=== PATIENT | male | born 1960 | race Caucasian/White ===

== ENCOUNTER 2021-12-03 08:03 | Inpatient (IN) | payer OTHER, SELFPAY ==
[2021-12-03] VITALS (32 sets, daily range): BP systolic 120–164; BP diastolic 76–115; PULSE 61–128; RESP 12–18; TEMP 35.8–36.6; O2SAT 87–100; BMI 25.1
--- NOTE | 2021-12-03 08:27 | CRLHL7_ITS ---
For Patients: As a result of the Century Cures Act, medical imaging exams and procedure reports are released immediately into your electronic medical record. You may view this report before your referring provider. If you have questions, please contact your health care provider. Indication: Right upper quadrant pain Technique: Sonography of the abdomen was performed limited to the structures discussed below Comparison: None Findings: The liver is heterogeneous and hyperechoic with decreased sound through transmission. This pattern is usually due to hepatic steatosis. No focal mass or biliary ductal dilatation. The pancreas appears heterogeneous and hyperechoic probably due to fatty infiltration. The right kidney is unremarkable measuring 9.7 x 5.5 x 5.0 centimeters. No visible hydronephrosis, calculus or mass The aorta and cava as visualized appears normal. The gallbladder is abnormal. It is distended. There is sludge. No visible stones. Wall thickening is noted with the wall measuring 5 millimeters. Greater than 3 millimeters is considered abnormal. There is also trace pericholecystic fluid and intramural edema of the gallbladder wall. The common bile duct measures 5 millimeters which is normal Impression: Findings likely related to acute cholecystitis in the appropriate clinical setting. Dictated by Howard Hutchinson MD @ 12/03/2021 9:32:59 AM (Electronically Signed)
--- NOTE | 2021-12-03 08:30 | ED_ITS ---
HPI - Abdominal Pain General Chief Complaint: Abdominal Pain Stated Complaint: Sharp pain right side Time Seen by Provider: 12/03/21 08:20 History of Present Illness HPI narrative: This is a 61-year-old male patient with known history of Crohn's disease who presents emergency department with 2 days of right upper quadrant abdominal pain. He reports the pain is most severe with deep inspiration and is 'stabbing'. However, otherwise the pain is constant and 'aching'. Patient reports pain is not similar to his previous Crohn flares. Patient reports he has decreased p.o. intake secondary to abdominal pain, but he denies this has improved his discomfort. He denies fever, chills, or sweats. He reports in the last week he has felt backed up and reports that he has had multiple stools since that time. His last stool was 1 day prior to presentation. He denies blood, mucus, or loose stools. He denies nausea or vomiting. See nursing notes for additional details. Related Data Home Medications Medication Instructions Recorded Confirmed alendronate 70 mg tablet ea PO 11/10/21 11/10/21 omeprazole 20 mg capsule,delayed 20 mg PO BID cap 11/10/21 11/10/21 release omeprazole 40 mg capsule,delayed 40 mg PO QDAY cap 11/10/21 11/10/21 release adalimumab 40 mg/0.4 mL mg SUBCUT 12/03/21 subcutaneous pen kit (Humira(CF) Pen) cholestyramine-aspartame 4 gram ea 12/03/21 oral powder for susp in a packet (Cholestyramine Light) Allergies Allergy/AdvReac Type Severity Reaction Status Date / Time mercaptopurine Allergy Intermediate low wbc Verified 12/03/21 11:11 [From Purinethol] infliximab [From Remicade] Allergy Unknown Verified 12/03/21 11:11 amoxicillin Allergy Unknown Uncoded 12/03/21 11:11 Review of Systems Const Denies: fever, chills, fatigue or malaise Cardio Denies: chest pain or shortness of breath with exertion Resp Denies: shortness of breath or cough GI Denies: abdominal pain, nausea, vomiting, diarrhea or constipation Denies: painful urination, urinary frequency or urinary urgency Neuro Denies: headache, numbness in extremities or lack of coordination Endo Denies: fatigue PFSH [facility] Medical History Acid reflux Crohn disease Gout Surgical History History of bowel resection History of hernia surgery History of penile implant Family History Other Coronary artery disease IBS (irritable bowel syndrome) Lung cancer Prostate cancer Stomach problems Social History Smoking Status: Never smoker How often do you have a drink containing alcohol: monthly or less Alcohol type details: occasionally AUDIT-C Alcohol total score: 1 Non-prescribed substance use: denies use Exam Const: Vital Signs, click to edit/add: Vital Signs - 24 hr 12/03/21 08:08 12/03/21 08:30 12/03/21 09:30 Temperature 97.5 F L Pulse Rate [Left P ulse Oximeter] 77 72 61 Respiratory Rate 18 18 Blood Pressure [Ri ght Upper Arm] 147/79 H 139/85 145/89 H Pulse Oximetry 100 99 100 12/03/21 10:00 12/03/21 10:30 12/03/21 11:30 Temperature Pulse Rate [Left P ulse Oximeter] 69 68 68 Respiratory Rate 18 18 Blood Pressure [Ri ght Upper Arm] 148/89 H 141/83 H 141/81 H Pulse Oximetry 99 99 100 12/03/21 12:00 12/03/21 12:30 Temperature Pulse Rate [Left P ulse Oximeter] 76 68 Respiratory Rate Blood Pressure [Ri ght Upper Arm] 150/97 H 147/92 H Pulse Oximetry 100 100 Documenting provider has reviewed patient's vital signs: yes Common normals: no apparent distress, oriented x3, alert and well nourished General appearance: cooperative, comfortable, well kempt and well developed Orientation/consciousness: Yes oriented to person, Yes oriented to place and Yes oriented to time HENMT: Common normals: normocephalic and hearing grossly normal bilaterally Head and scalp: normocephalic Eye: Common normals: EOMs intact bilaterally General eye: normal appearance of both eyes Neck & C-Spine: Common normals: full ROM and supple Chest: Common normals: inspection of chest normal Resp: Common normals: normal respiratory effort, no retractions, no use of accessory muscles and clear to auscultation bilaterally Auscultation: clear to auscultation bilaterally Cardio: Common normals: regular rate, regular rhythm, S1 normal heart sound, S2 normal heart sound, no gallops and no murmurs Rate: regular rate Rhythm: regular rhythm Heart sounds: S1 normal and S2 normal GI: Common normals: Normal to inspection, nondistended, normoactive bowel sounds present (protuberant) and soft to palpation Palpation: soft and tender (RUQ with Tran's positive) Details: Tran's sign : Common normals: no CVA tenderness Bladder/kidney exam: no CVA tenderness Back & Pelvis: Common normals: no CVA tenderness Extremity: Common normals: normal to inspection and no clubbing, cyanosis or edema Neuro: Common normals: oriented x3 Sensorium/orientation: alert, oriented to person, oriented to place and oriented to time Psych: Common normals: mental status grossly normal, thought process normal, cooperative, affect normal, speech normal and activity/motor behavior normal Appearance: well kempt Speech: normal speech Thought process: normal thought process Skin: Common normals: no rashes or lesions noted General skin exam: no rashes or lesions noted Course Course Hospital Course: 61yo male patient who presented with complaint of RUQ abdominal pain and found to have cholecystitis. The patient was presented to [facility] for admission and further treatment/evaluation. His vitals have remained stable. He is currently comfortable. Reevaluation(s) Reevaluation #1: Julio César is still resting comfortably. Discussed results from US and initial lab reports. Will plan outpatient referral for patient for gallbladder disease. Time: 09:15 Reevaluation #2: Julio César has been notified of consult with surgeon, once available. Elevated DDimer (ordered for increased pain with inspiration), CTA ordered. Time: 09:38 Vital Signs Vital signs: Initial Vital Signs Temperature 97.5 F L 12/03/21 08:08 Temperature Source Temporal Artery Scan 12/03/21 08:08 Pulse Rate 77 12/03/21 08:08 Respiratory Rate 18 12/03/21 08:08 Blood Pressure 147/79 H 12/03/21 08:08 Blood Pressure Mean 101 12/03/21 08:08 Blood Pressure Position Supine 12/03/21 08:08 Pulse Oximetry 100 07/21/22 08:08 Oxygen Delivery Method 12/03/21 08:08 Vital Signs Temperature 97.5 F L 12/03/21 08:08 Pulse Rate 77 12/03/21 08:08 Respiratory Rate 18 12/03/21 08:08 Blood Pressure 147/79 H 12/03/21 08:08 Pulse Oximetry 100 12/03/21 08:08 Temperature 97.5 F L 12/03/21 08:08 Pulse Rate 68 12/03/21 12:30 Respiratory Rate 18 12/03/21 11:30 Blood Pressure 147/92 H 12/03/21 12:30 Pulse Oximetry 100 12/03/21 12:30 MDM - Abdominal Pain Differential Diagnosis Differential diagnosis: Likely abdominal pain, constipation, diverticulitis, gastroenteritis and small bowel obstruction Medical Records Attestation: I reviewed the patient's medical records. Lab Data Attestation: I reviewed the patient's lab results. Lab results narrative: Last LFTs 08/04: bilirubin (1.6) / AST/ALT (44/69) Labs: Lab Results 12/03/21 12/03/21 12/03/21 Range/Units 08:27 08:44 08:44 WBC 6.55 (4.50-11.00) K/uL RBC 4.04 L (4.30-5.90) m/uL Hgb 12.2 L (13.5-17.5) gm/dL Hct 36.4 L (37.0-53.0) % MCV 90 (80-100) fL MCH 30 (26-34) pg MCHC 34 (32-36) gm/dL RDW Coeff of Deep 13.0 (11.5-15.5) % Plt Count 253 (140-440) K/uL Neut % (Auto) 58.2 (42.0-72.0) % Lymph % (Auto) 25.0 (20-44) % Richardson % (Auto) 14.7 H (0.0-11.0) % Eos % (Auto) 1.4 (0.0-7.0) % Baso % (Auto) 0.5 (0.0-3.0) % Neut # (Auto) 3.82 (1.7-7.0) K/uL Lymph # (Auto) 1.64 (0.90-2.90) K/uL Richardson # (Auto) 1.00 H (0.00-0.90) K/UL Eos # (Auto) 0.09 (0.00-0.50) K/uL Baso # (Auto) 0.03 (0.00-0.30) K/uL Abs Immat Gran (auto) 0.01 (0.00-0.30) K/uL D-Dimer Quant (PE/DVT) (0.00-0.50) ug/ml Sodium 139 (135-149) mmol/L Potassium 3.7 (3.6-5.1) mmol/L Chloride 104 (96-114) mmol/L Carbon Dioxide 28 (20-32) mmol/L BUN 11 (7-30) mg/dL Creatinine 1.0 (0.5-1.5) mg/dL Estimated Creat Clear 77.57 Estimated GFR 86 ml/min Glucose 115 (60-115) mg/dL Plasma Lactic Acid Jabari Lactate (0.5-1.9) mmol/L Calcium 8.3 L (8.4-10.6) mg/dL Total Bilirubin 4.8 H (0.1-1.5) mg/dL Direct Bilirubin 1.9 H (0.0-0.5) mg/dL AST 72 H (12-35) U/L ALT 92 H (4-50) U/L Alkaline Phosphatase 125 (40-150) U/L Total Protein 7.8 (6.0-8.3) g/dL Albumin 3.8 (3.3-5.0) g/dL Urine Color Paula A (Yellow) Urine Appearance Clear (Clear) Urine pH 6.0 (5.0-8.5) Ur Specific [place] 1.025 (1.000-1.030) Urine Protein 1+ A (Negative) Urine Glucose (UA) Negative (Negative) Urine Ketones Negative (Negative) Urine Blood Negative (Negative) Urine Nitrite Negative (Negative) Urine Bilirubin 1+ A (Negative) Urine Urobilinogen 0.2 (0.2-1.0) Ur Leukocyte Esterase Negative (Negative) Urine RBC 0-2 (0-2) Urine WBC 0-2 (0-5) Ur Squamous Epith Cells None (None-Few) Urine Bacteria None (None) SARS-CoV-2 (PCR) (Negative) 12/03/21 12/03/21 12/03/21 Range/Units 08:44 08:44 08:44 WBC (4.50-11.00) K/uL RBC (4.30-5.90) m/uL Hgb (13.5-17.5) gm/dL Hct (37.0-53.0) % MCV (80-100) fL MCH (26-34) pg MCHC (32-36) gm/dL RDW Coeff of Deep (11.5-15.5) % Plt Count (140-440) K/uL Neut % (Auto) (42.0-72.0) % Lymph % (Auto) (20-44) % Richardson % (Auto) (0.0-11.0) % Eos % (Auto) (0.0-7.0) % Baso % (Auto) (0.0-3.0) % Neut # (Auto) (1.7-7.0) K/uL Lymph # (Auto) (0.90-2.90) K/uL Richardson # (Auto) (0.00-0.90) K/UL Eos # (Auto) (0.00-0.50) K/uL Baso # (Auto) (0.00-0.30) K/uL Abs Immat Gran (auto) (0.00-0.30) K/uL D-Dimer Quant (PE/DVT) 2.45 H (0.00-0.50) ug/ml Sodium (135-149) mmol/L Potassium (3.6-5.1) mmol/L Chloride (96-114) mmol/L Carbon Dioxide (20-32) mmol/L BUN (7-30) mg/dL Creatinine (0.5-1.5) mg/dL Estimated Creat Clear Estimated GFR ml/min Glucose (60-115) mg/dL Plasma Lactic Acid Jabari Cancelled Lactate 0.6 (0.5-1.9) mmol/L Calcium (8.4-10.6) mg/dL Total Bilirubin (0.1-1.5) mg/dL Direct Bilirubin (0.0-0.5) mg/dL AST (12-35) U/L ALT (4-50) U/L Alkaline Phosphatase (40-150) U/L Total Protein (6.0-8.3) g/dL Albumin (3.3-5.0) g/dL Urine Color (Yellow) Urine Appearance (Clear) Urine pH (5.0-8.5) Ur Specific [place] (1.000-1.030) Urine Protein (Negative) Urine Glucose (UA) (Negative) Urine Ketones (Negative) Urine Blood (Negative) Urine Nitrite (Negative) Urine Bilirubin (Negative) Urine Urobilinogen (0.2-1.0) Ur Leukocyte Esterase (Negative) Urine RBC (0-2) Urine WBC (0-5) Ur Squamous Epith Cells (None-Few) Urine Bacteria (None) SARS-CoV-2 (PCR) (Negative) 12/03/21 Range/Units 10:20 WBC (4.50-11.00) K/uL RBC (4.30-5.90) m/uL Hgb (13.5-17.5) gm/dL Hct (37.0-53.0) % MCV (80-100) fL MCH (26-34) pg MCHC (32-36) gm/dL RDW Coeff of Deep (11.5-15.5) % Plt Count (140-440) K/uL Neut % (Auto) (42.0-72.0) % Lymph % (Auto) (20-44) % Richardson % (Auto) (0.0-11.0) % Eos % (Auto) (0.0-7.0) % Baso % (Auto) (0.0-3.0) % Neut # (Auto) (1.7-7.0) K/uL Lymph # (Auto) (0.90-2.90) K/uL Richardson # (Auto) (0.00-0.90) K/UL Eos # (Auto) (0.00-0.50) K/uL Baso # (Auto) (0.00-0.30) K/uL Abs Immat Gran (auto) (0.00-0.30) K/uL D-Dimer Quant (PE/DVT) (0.00-0.50) ug/ml Sodium (135-149) mmol/L Potassium (3.6-5.1) mmol/L Chloride (96-114) mmol/L Carbon Dioxide (20-32) mmol/L BUN (7-30) mg/dL Creatinine (0.5-1.5) mg/dL Estimated Creat Clear Estimated GFR ml/min Glucose (60-115) mg/dL Plasma Lactic Acid Jabari Lactate (0.5-1.9) mmol/L Calcium (8.4-10.6) mg/dL Total Bilirubin (0.1-1.5) mg/dL Direct Bilirubin (0.0-0.5) mg/dL AST (12-35) U/L ALT (4-50) U/L Alkaline Phosphatase (40-150) U/L Total Protein (6.0-8.3) g/dL Albumin (3.3-5.0) g/dL Urine Color (Yellow) Urine Appearance (Clear) Urine pH (5.0-8.5) Ur Specific [place] (1.000-1.030) Urine Protein (Negative) Urine Glucose (UA) (Negative) Urine Ketones (Negative) Urine Blood (Negative) Urine Nitrite (Negative) Urine Bilirubin (Negative) Urine Urobilinogen (0.2-1.0) Ur Leukocyte Esterase (Negative) Urine RBC (0-2) Urine WBC (0-5) Ur Squamous Epith Cells (None-Few) Urine Bacteria (None) SARS-CoV-2 (PCR) Negative SARS-CoV-2 (Negative) Imaging Data GB US: Attestation: I have reviewed the pertinent imaging results. Radiologist's impression: The gallbladder is abnormal. It is distended. There is sludge. No visible stones. Wall thickening is noted with the wall measuring 5 millimeters. Greater than 3 millimeters is considered abnormal. There is also trace pericholecystic fluid and intramural edema of the gallbladder wall. The common bile duct measures 5 millimeters which is normal Impression: Findings likely related to acute cholecystitis in the appropriate clinical setting. CT scan - chest: Attestation: I have reviewed the pertinent imaging results. Radiologist's impression: IMPRESSION: 1. Negative for acute pulmonary embolism. No other acute findings in the chest. 2. Markedly distended gallbladder with pericholecystic fat stranding suggesting acute cholecystitis. Discharge Plan Discharge Clinical Impression: Transaminitis, Acute cholecystitis Patient Disposition: Admitted As Inpatient Condition: Stable Activity Level: No Restrictions and Activity as Tolerated
[2021-12-03 08:57] LABS: Lactate* 0.6 mmol/L (0.5-1.9)
[2021-12-03 09:01] LABS: Basophils Absolute Auto 0.03 K/uL (0.00-0.30); Basophils Percent Auto 0.5 % (0.0-3.0); Eosinophils Absolute Auto 0.09 K/uL (0.00-0.50); Eosinophils Percent Auto 1.4 % (0.0-7.0); Hematocrit 36.4 % (37.0-53.0); Hemoglobin* 12.2 gm/dL (13.5-17.5); Immature Granulocytes Abs Auto 0.01 K/uL (0.00-0.30); Lymphocytes Absolute Auto 1.64 K/uL (0.90-2.90); Mean Corpuscular HGB Conc 34 gm/dL (32-36); Mean Corpuscular Hemoglobin 30 pg (26-34); Mean Corpuscular Volume 90 fL (80-100); Monocytes Percent Auto 14.7 % (0.0-11.0); Neutrophils Absolute Auto 3.82 K/uL (1.7-7.0); Neutrophils Percent Auto 58.2 % (42.0-72.0); Platelet Count* 253 K/uL (140-440); Red Blood Count 4.04 m/uL (4.30-5.90); White Blood Count* 6.55 K/uL (4.50-11.00)
[2021-12-03 09:10] LABS: Slide Review Reflex No
[2021-12-03 09:17] LABS: Albumin* 3.8 g/dL (3.3-5.0)
[2021-12-03 09:18] LABS: Chloride* 104 mmol/L (96-114); Potassium* 3.7 mmol/L (3.6-5.1); Sodium* 139 mmol/L (135-149)
[2021-12-03 09:20] LABS: Aspartate Amino Transferase* 72 U/L (12-35); Carbon Dioxide* 28 mmol/L (20-32); Est. Creatinine Clearance* 77.57; Estimated Glomerular Filt Rate 86 ml/min; Total Protein* 7.8 g/dL (6.0-8.3)
[2021-12-03 09:21] LABS: Alanine Aminotransferase* 92 U/L (4-50); Alkaline Phosphatase* 125 U/L (40-150); Blood Urea Nitrogen* 11 mg/dL (7-30); Calcium* 8.3 mg/dL (8.4-10.6); Glucose* 115 mg/dL (60-115)
[2021-12-03 09:34] LABS: Appearance Urine Clear (Clear); Bilirubin Urine 1+ (Negative); Blood Urine Negative (Negative); Color Urine Amber (Yellow); Glucose Urine Negative (Negative); Ketones Urine Negative (Negative); Leukocyte Esterase Urine Negative (Negative); Nitrite Urine Negative (Negative); Protein Urine 1+ (Negative); Specific Gravity Urine 1.025 (1.000-1.030); Urobilinogen Urine 0.2 (0.2-1.0)
[2021-12-03 09:36] LABS: D Dimer Quantitative* 2.45 ug/ml (0.00-0.50)
[2021-12-03 09:45] LABS: RBC Urine 0-2 (0-2); WBC Urine 0-2 (0-5)
--- NOTE | 2021-12-03 09:57 | CRLHL7_ITS ---
For Patients: As a result of the Century Cures Act, medical imaging exams and procedure reports are released immediately into your electronic medical record. You may view this report before your referring provider. If you have questions, please contact your health care provider. INDICATION: Elevated D-dimer, right upper quadrant pain with inspiration. COMPARISON: Abdominal ultrasound 12/03/2021. CT chest 02/23/2019. TECHNIQUE: CT of the chest with 95 cc of Isovue 370 IV contrast. Coronal and sagittal reconstructions. 3D post processing was performed. FINDINGS: Heart size upper limits of normal. Normal caliber thoracic aorta and central pulmonary arteries. Mild coronary artery calcifications. Negative for acute pulmonary embolism. No pericardial effusion. No thoracic lymphadenopathy. The imaged thyroid gland is normal in appearance. No focal consolidation, pleural effusion, or pneumothorax. The previously seen right middle lobe consolidation has resolved. Mild bibasilar atelectasis. No pulmonary nodules identified. No central endobronchial lesion or bronchial wall thickening. Mild elevation of the right hemidiaphragm. Small hiatal hernia. The gallbladder is markedly distended with pericholecystic fat stranding suggesting acute cholecystitis. No calcified gallstones are seen. No biliary dilation. The visualized upper abdomen is otherwise unremarkable. The bones are within normal limits. IMPRESSION: 1. Negative for acute pulmonary embolism. No other acute findings in the chest. 2. Markedly distended gallbladder with pericholecystic fat stranding suggesting acute cholecystitis. Please note that all CT scans at this facility use dose modulation, iterative reconstruction, and/or weight-based dosing when appropriate to reduce radiation dose to as low as reasonably achievable. Dictated by Ena Gonsalves MD @ 12/03/2021 12:41:53 PM (Electronically Signed)
--- NOTE | 2021-12-03 10:24 | ED.NURSE ---
[employer] swab for covid
--- NOTE | 2021-12-03 11:10 | W.PC.EDHO ---
Primary Language: Preferred Language: Orientation Status: [x] Alert & Oriented [] Slight Confusion [] Known Dx Dementia Transfers By: [x] Assist of 1 [] Assist of 2 [] Lift Description of Symptoms ED Triage Present Problem c/o R sided abd pain under rib cage. denies other Description symptoms. states a couple days ago had blockage in colon there, but had increased stools for that. hx crohn's, states this feels different. hx 2 surgeries for crohn's. took ibuprofen and gas x early this am with little relief ED Triage Date of Onset of 12/02/21 Symptoms Pain Pain Radiation Location [Right R abd Abdomen] Pain Intensity [Right Abdomen] 5 Pain Intensity [Right Abdomen] 5 Pain Intensity 5 Pain Intensity 5 Pain Intensity 5 Pain Scale Used [Right Abdomen Numeric (1 - 10) ] Pain Scale Used Numeric (1 - 10) Pain Scale Used Numeric (1 - 10) Oxygen Administration Pulse Oximetry 99 Pulse Oximetry 100 Pulse Oximetry 99 Pulse Oximetry 100 Oxygen Delivery Method Room Air Oxygen Delivery Method Room Air Oxygen Delivery Method Room Air Oxygen Delivery Method Room Air
[2021-12-03 11:17] LABS: SARS PCR* Negative SARS-CoV-2 (Negative)
[2021-12-03] MEDS: PIPERACILLIN/TAZOBACTAM 3.375 GM in 0.9 % SODIUM CHLORIDE Mini-bag 100 ML IVPB (11:26)
[2021-12-03 11:48] LABS: Bilirubin Direct* 1.9 mg/dL (0.0-0.5)
[2021-12-03 11:51] LABS: Bilirubin Total* 4.8 mg/dL (0.1-1.5)
--- NOTE | 2021-12-03 12:43 | P.GSCN_ITS ---
History of Present Illness Consult details Consult date: 12/03/21 Reason for consult: abdominal pain Narrative: Patient is a 61-year-old male, with a history of Crohn's disease, who presented to the emergency department with a 2 day history worsening right upper quadrant abdominal pain. The pain came on suddenly yesterday and was positioned right underneath his ribs. He tried to manage the pain at home with Tylenol to and rest, but it just continued to worsen and he now has pain with every breath. He has never had pain like this before and states that when he has pain from his Crohn's disease it is usually more diffuse. He does have multiple bowel movem ents a day, which is usual for him. He denies any fevers or chills at home. His abdominal surgical history is positive for 2 small bowel resections, both open. Review of Systems Status of ROS: Reports: 6 or more systems reviewed and unremarkable except as noted in History and below PFSH PFSH Medical History Acid reflux Crohn disease Gout Surgical History History of bowel resection History of hernia surgery History of penile implant Family History Other Coronary artery disease IBS (irritable bowel syndrome) Lung cancer Prostate cancer Stomach problems Social History Smoking Status: Never smoker How often do you have a drink containing alcohol: monthly or less Alcohol type details: occasionally AUDIT-C Alcohol total score: 1 Non-prescribed substance use: denies use Meds Home Medications and Allergies Home Medications Medication Instructions Recorded Confirmed Type alendronate 70 mg tablet ea PO 11/10/21 11/10/21 History omeprazole 20 mg capsule,delayed 20 mg PO BID cap 11/10/21 11/10/21 History release omeprazole 40 mg capsule,delayed 40 mg PO QDAY cap 11/10/21 11/10/21 History release adalimumab 40 mg/0.4 mL mg SUBCUT 12/03/21 History subcutaneous pen kit (Humira(CF) Pen) cholestyramine-aspartame 4 gram ea 12/03/21 History oral powder for susp in a packet (Cholestyramine Light) Allergies Allergy/AdvReac Type Severity Reaction Status Date / Time mercaptopurine Allergy Intermediate low wbc Verified 12/03/21 11:11 [From Purinethol] infliximab [From Remicade] Allergy Unknown Verified 12/03/21 11:11 amoxicillin Allergy Unknown Uncoded 12/03/21 11:11 Exam Narrative: Exam Narrative: General: Alert and oriented, no acute distress. Lying comfortably in bed. Respiratory: Equal breath rise bilaterally, maintained on room air CV: Regular rhythm and rate, well perfused Abdomen: Mild distention, soft. Tender to palpation right upper quadrant with positive Tran sign. Lower midline incision well healed. Const: Vital Signs, click to edit/add: Vital Signs - 24 hr 12/03/21 08:08 12/03/21 08:30 12/03/21 09:30 Temperature 97.5 F L Pulse Rate [Left P ulse Oximeter] 77 72 61 Respiratory Rate 18 18 Blood Pressure [Ri ght Upper Arm] 147/79 H 139/85 145/89 H Pulse Oximetry 100 99 100 12/03/21 10:00 12/03/21 10:30 Temperature Pulse Rate [Left P ulse Oximeter] 69 68 Respiratory Rate 18 Blood Pressure [Ri ght Upper Arm] 148/89 H 141/83 H Pulse Oximetry 99 99 Documenting provider has reviewed patient's vital signs: yes Results Labs Labs: Abnormal lab results 12/03/21 12/03/21 12/03/21 Range/Units 08:27 08:44 08:44 RBC 4.04 L (4.30-5.90) m/uL Hgb 12.2 L (13.5-17.5) gm/dL Hct 36.4 L (37.0-53.0) % [place] % (Auto) 14.7 H (0.0-11.0) % [place] # (Auto) 1.00 H (0.00-0.90) K/UL D-Dimer Quant (PE/DVT) (0.00-0.50) ug/ml Calcium 8.3 L (8.4-10.6) mg/dL Total Bilirubin 4.8 H (0.1-1.5) mg/dL Direct Bilirubin 1.9 H (0.0-0.5) mg/dL AST 72 H (12-35) U/L ALT 92 H (4-50) U/L Urine Color Paula A (Yellow) Urine Protein 1+ A (Negative) Urine Bilirubin 1+ A (Negative) 12/03/21 Range/Units 08:44 RBC (4.30-5.90) m/uL Hgb (13.5-17.5) gm/dL Hct (37.0-53.0) % [place] % (Auto) (0.0-11.0) % [place] # (Auto) (0.00-0.90) K/UL D-Dimer Quant (PE/DVT) 2.45 H (0.00-0.50) ug/ml Calcium (8.4-10.6) mg/dL Total Bilirubin (0.1-1.5) mg/dL Direct Bilirubin (0.0-0.5) mg/dL AST (12-35) U/L ALT (4-50) U/L Urine Color (Yellow) Urine Protein (Negative) Urine Bilirubin (Negative) Diabetes panel 12/03/21 Range/Units 08:44 Sodium 139 (135-149) mmol/L Potassium 3.7 (3.6-5.1) mmol/L Chloride 104 (96-114) mmol/L Carbon Dioxide 28 (20-32) mmol/L BUN 11 (7-30) mg/dL Creatinine 1.0 (0.5-1.5) mg/dL Glucose 115 (60-115) mg/dL Calcium 8.3 L (8.4-10.6) mg/dL AST 72 H (12-35) U/L ALT 92 H (4-50) U/L Alkaline Phosphatase 125 (40-150) U/L Total Protein 7.8 (6.0-8.3) g/dL Albumin 3.8 (3.3-5.0) g/dL Calcium panel 12/03/21 Range/Units 08:44 Calcium 8.3 L (8.4-10.6) mg/dL Albumin 3.8 (3.3-5.0) g/dL Pituitary panel 12/03/21 Range/Units 08:44 Sodium 139 (135-149) mmol/L Potassium 3.7 (3.6-5.1) mmol/L Chloride 104 (96-114) mmol/L Carbon Dioxide 28 (20-32) mmol/L BUN 11 (7-30) mg/dL Creatinine 1.0 (0.5-1.5) mg/dL Glucose 115 (60-115) mg/dL Calcium 8.3 L (8.4-10.6) mg/dL Adrenal panel 12/03/21 Range/Units 08:44 Sodium 139 (135-149) mmol/L Potassium 3.7 (3.6-5.1) mmol/L Chloride 104 (96-114) mmol/L Carbon Dioxide 28 (20-32) mmol/L BUN 11 (7-30) mg/dL Creatinine 1.0 (0.5-1.5) mg/dL Glucose 115 (60-115) mg/dL Calcium 8.3 L (8.4-10.6) mg/dL Total Bilirubin 4.8 H (0.1-1.5) mg/dL AST 72 H (12-35) U/L ALT 92 H (4-50) U/L Alkaline Phosphatase 125 (40-150) U/L Total Protein 7.8 (6.0-8.3) g/dL Albumin 3.8 (3.3-5.0) g/dL All other labs normal. Imaging CT scan - chest: report reviewed and image reviewed Abdominal ultrasound report/results: report reviewed and image reviewed Assessment and Plan Assessment and plan (1) Acute cholecystitis: Status: Acute Plan Patient presented to the emergency department with findings consistent for acute cholecystitis. Vital signs stable. Labs are significant for elevated bilirubin (4.9 with elevation and direct), as well as elevated ALT/AST. Raising the concern for possible choledocholithiasis. I had a detailed conversation with the patient regarding the diagnosis of acute cholecystitis and choledocholithiasis We discussed the treatment options including observation with diet modification and laparoscopic cholecystectomy. We discussed the risks of surgery (including but not limited to) the risks of bleeding, infection, injury to other structures in the abdomen including bile duct injury, bile leak and conversion to an open operation. We discussed the possibility that the patient's pain not improve with surgery. We discussed the possibility of permanent post-operative diarrhea that may require medical management. Additionally, the conceivably of complications requiring additional surgery or further hospitalization were also discussed including the risks of [place], respiratory failure, stroke and blood clots. The patient voiced an understanding of our conversation, had the opportunity to ask questions, agreed to accept the risks of surgery and asked that we proceed with surgery. -OR for laparoscopic cholecystectomy with intraoperative cholangiogram
--- NOTE | 2021-12-03 12:49 | ED.NURSE ---
pt to Surgery
--- NOTE | 2021-12-03 12:53 | CRLHL7_ITS ---
For Patients: As a result of the Century Cures Act, medical imaging exams and procedure reports are released immediately into your electronic medical record. You may view this report before your referring provider. If you have questions, please contact your health care provider. INDICATION : Laparoscopic cholecystectomy. TECHNIQUE : Intraoperative cholangiogram. Contrast injected via gallbladder neck and cystic duct. FINDINGS : Fluoroscopy time was 16.7 seconds. Two images were obtained. IMPRESSION : Normal caliber intra and extrahepatic ducts. No filling defects. Contrast seen within the duodenum. Normal intraoperative cholangiogram. Dictated by Sixto Lee MD @ 12/03/2021 3:18:10 PM (Electronically Signed)
[2021-12-03] MEDS: 0.9 % SODIUM CHL 20 ml vial 40 ML INJECTION (14:24)
[2021-12-03] MEDS: IOPAMIDOL 50 ML VIAL INJECTION (14:24)
--- NOTE | 2021-12-03 14:25 | SUR.OPER ---
7 CC ISOVUE CONTRAST MEDIA USED DURING CHOLANGIOGRAM
[2021-12-03] MEDS: BUPIVACAINE 0.5% 30 ML INJECTION (15:45)
--- NOTE | 2021-12-03 15:55 | P.GSOP_ITS ---
Operative Note Date of procedure: 12/03/21 Type of Procedure: Laparoscopic cholecystectomy with intraoperative cholangiograms Procedure Description: After discussing the risks and benefits of the procedure, the patient signed informed consent.? The operative site was marked and the patient was brought to the operating room and placed on the operating table in supine position.? Care was taken to pad the patient's pressure points.?? The patient was then intubated by anesthesia.?? The operative site was then prepped and draped in the usual sterile fashion.? A time-out was then performed. Entrance to the abdomen was gained via a 5 mm Visiport in the left upper q uadrant. The abdomen was insufflated and briefly surveyed for signs of injury. There was none. 11 mm umbilical port was placed as well as 2 working ports along the right costal margin. Patient was then placed in reverse Trendelenburg position with the right side up. The gallbladder fundus was grasped and retracted cephalad. The omentum was adhered to the gallbladder, which was significantly distended. The omentum was gently peeled down which revealed a hemorrhagic gallbladder wall. The laparoscopic needle was introduced into the abdomen and greater than 200 mL dark bilious fluid was removed from the gallbladder and referred to be grasped. The infundibulum was grasped and retracted cephalad A combination of hook cautery and blunt dissection was used to carefully dissect out the cystic duct and artery until they could clearly be seen entering the gallbladder without any intervening structures. Dissection was difficult secondary to edema and associated inflammation. The critical view was obtained and the artery divided with 2 clips placed proximally 1 clip distally. A distal clip was applied on the cystic duct and a small incision was made on the duct in order to perform the intraoperative cholangiogram. The laparoscopic cholangiogram catheter was introduced into the abdomen and cystic duct. This was clamped in placed and saline flowed easily through the biliary system. C-arm fluoroscopy was then brought into the field and dye injected. Evidence of filling of the cystic duct into the common bile duct and duodenum with no blockage identified. The right and left hepatic ducts were also identified. With no evidence of choledocholithiasis the C-arm was taken off of the field and the operation continued. Two clips were placed proximally on the cystic duct, which was transected with scissors. The gallbladder was then taken off of the liver bed. This portion of the procedure was very difficult secondary to an intrahepatic inflamed gallbladder. The gallbladder wall was also hemorrhagic and necrotic at parts. During the removal process a small laceration of the liver was made within the gallbladder fossa. This was cauterized to help control bleeding. Once the gallbladder was completely taken off of the liver bed it was removed from the abdomen using an Endo-Catch bag. The gallbladder bed was surveyed for hemostasis, which appeared excellent. Cas sta was placed within the gallbladder fossa. The decision was made to place a ANTONINA drain within the gallbladder fossa given the difficulty of dissection and intraoperative blood loss from the liver laceration. All ports removed under direct visualization The umbilical port fascia was closed with 0 Vicryl. The skin was closed with absorbable subcuticular suture. Instrument sponge and needle counts were correct at the end of the case. The patient was then woken and transferred to the PACU in stable condition. ? Sterile dressings were then applied. ? The patient was then woken and transported to the recovery area in stable condition. ? The patient tolerated the procedure well. Findings: Acute cholecystitis with hemorrhagic and necrotic gallbladder. No evidence of choledocholithiasis. Liver laceration within the gallbladder fossa. ANTONINA drain left in right upper quadrant. Anesthesia: GETA Surgeon: Laura Love MD Estimated blood loss (mL): 150 Condition: stable Disposition: PACU
[2021-12-03] MEDS: LACTATED RINGERS 1000 ML 1,000 ML 35 ML IV (16:00)
--- NOTE | 2021-12-03 16:12 | W.ANESCHARGE ---
Anesthesia Charges Start Date/Time Anesthesia Start Date: 12/03/21 Anesthesia Start Time: 12:51 Stop Date/Time Anesthesia Stop Date: 12/03/21 Anesthesia Stop Time: 16:06 Summary Emergency: Yes
[2021-12-03] MEDS: OxyCODONE/APAP 5-325 TABLET PO ×2 (20:42→23:03)
[2021-12-04] VITALS (7 sets, daily range): BP systolic 121–147; BP diastolic 72–85; PULSE 76–95; RESP 16–20; TEMP 36.3–36.6; O2SAT 88–98
[2021-12-04] MEDS: OxyCODONE/APAP 5-325 TABLET PO ×6 (03:39→22:39)
--- NOTE | 2021-12-04 06:39 | PC.NURSE ---
SHIFT NOTE : Pt A&O, afebrile, on 1L O2 PNC to keep O2 above 90%. Denies SOB, IS encouraged and C&DB. Lap sites C/D/I, ANTONINA drain patent and stripped Q4H with bloody drainage. Ice pack to abdomen. Bowel sounds hypoactive, denies N/V, tolerating regular diet. PRN [place] given for pt c/o abdominal pain, pt reports relief.
--- NOTE | 2021-12-04 06:46 | W.ANESCHARGE ---
Anesthesia Charges Start Date/Time Anesthesia Start Date: 12/03/21 Anesthesia Start Time: 12:51 Stop Date/Time Anesthesia Stop Date: 12/03/21 Anesthesia Stop Time: 16:06 Summary Emergency: Yes
[2021-12-04 06:53] LABS: Basophils Absolute Auto 0.02 K/uL (0.00-0.30); Basophils Percent Auto 0.2 % (0.0-3.0); Eosinophils Absolute Auto 0.01 K/uL (0.00-0.50); Eosinophils Percent Auto 0.1 % (0.0-7.0); Hematocrit 35.7 % (37.0-53.0); Hemoglobin* 11.8 gm/dL (13.5-17.5); Immature Granulocytes Abs Auto 0.02 K/uL (0.00-0.30); Lymphocytes Percent Auto 15.5 % (20-44); Mean Corpuscular HGB Conc 33 gm/dL (32-36); Mean Corpuscular Hemoglobin 30 pg (26-34); Mean Corpuscular Volume 91 fL (80-100); Monocytes Percent Auto 11.1 % (0.0-11.0); Neutrophils Percent Auto 72.9 % (42.0-72.0); Platelet Count* 230 K/uL (140-440); RDW Coefficient of Variation % 13.5 % (11.5-15.5); Red Blood Count 3.93 m/uL (4.30-5.90)
[2021-12-04 06:57] LABS: Slide Review Reflex No
[2021-12-04 07:10] LABS: Alanine Aminotransferase* 90 U/L (4-50); Alkaline Phosphatase* 110 U/L (40-150); Aspartate Amino Transferase* 66 U/L (12-35); Bilirubin Direct* 2.5 mg/dL (0.0-0.5); Bilirubin Total* 5.5 mg/dL (0.1-1.5); Total Protein* 6.6 g/dL (6.0-8.3)
--- NOTE | 2021-12-04 08:51 | PM.GSPN ---
Subjective Subjective Date Seen: 12/04/21 Interval history: Patient is doing well postoperatively. He reports that his pain has improved, he does have some mild incisional pain. He has been able to get up and go to the bathroom independently. He is tolerating a regular diet. No acute concerns. Exam Narrative: Exam Narrative: General: Alert and oriented, no acute distress. Some mild Yellowing of the skin and scleral icterus Abdomen: Soft, nondistended, appropriately tender over incision sites with Dermabond in place. No concern for infection. ANTONINA drain in place with minimal dark sanguinous output. Const: Vital Signs, click to edit/add: Vital Signs - 24 hr 12/03/21 09:30 12/03/21 10:00 12/03/21 10:30 Temperature Pulse Rate Pulse Rate [Left P ulse Oximeter] 61 69 68 Pulse Rate [Pulse Oximeter] Respiratory Rate 18 Blood Pressure Blood Pressure [Le ft Arm] Blood Pressure [Ri ght Upper Arm] 145/89 H 148/89 H 141/83 H Pulse Oximetry 100 99 99 12/03/21 11:30 12/03/21 12:00 12/03/21 12:30 Temperature Pulse Rate Pulse Rate [Left P ulse Oximeter] 68 76 68 Pulse Rate [Pulse Oximeter] Respiratory Rate 18 Blood Pressure Blood Pressure [Le ft Arm] Blood Pressure [Ri ght Upper Arm] 141/81 H 150/97 H 147/92 H Pulse Oximetry 100 100 100 12/03/21 16:02 12/03/21 16:05 12/03/21 16:10 Temperature 96.9 F L Pulse Rate 93 87 90 Pulse Rate [Left P ulse Oximeter] Pulse Rate [Pulse Oximeter] Respiratory Rate 12 12 12 Blood Pressure 164/95 H 164/95 H 160/99 H Blood Pressure [Le ft Arm] Blood Pressure [Ri ght Upper Arm] Pulse Oximetry 96 94 93 12/03/21 16:15 12/03/21 16:20 12/03/21 16:25 Temperature 96.8 F L Pulse Rate 80 84 103 H Pulse Rate [Left P ulse Oximeter] Pulse Rate [Pulse Oximeter] Respiratory Rate 12 12 14 Blood Pressure 150/90 H 150/94 H 153/92 H Blood Pressure [Le ft Arm] Blood Pressure [Ri ght Upper Arm] Pulse Oximetry 95 92 95 12/03/21 16:30 12/03/21 16:35 12/03/21 16:40 Temperature Pulse Rate 116 H 128 H 85 Pulse Rate [Left P ulse Oximeter] Pulse Rate [Pulse Oximeter] Respiratory Rate 16 14 14 Blood Pressure 156/115 H 151/103 H 153/94 H Blood Pressure [Le ft Arm] Blood Pressure [Ri ght Upper Arm] Pulse Oximetry 95 96 97 12/03/21 16:45 12/03/21 16:50 12/03/21 16:55 Temperature 97.0 F L Pulse Rate 96 86 83 Pulse Rate [Left P ulse Oximeter] Pulse Rate [Pulse Oximeter] Respiratory Rate 16 16 16 Blood Pressure 147/101 H 141/89 H 125/90 H Blood Pressure [Le ft Arm] Blood Pressure [Ri ght Upper Arm] Pulse Oximetry 98 96 96 12/03/21 17:00 12/03/21 17:15 12/03/21 17:30 Temperature 96.5 F L 96.7 F L Pulse Rate 86 Pulse Rate [Left P ulse Oximeter] Pulse Rate [Pulse Oximeter] 87 86 Respiratory Rate 15 18 18 Blood Pressure 141/82 H Blood Pressure [Le ft Arm] 138/77 139/89 Blood Pressure [Ri ght Upper Arm] Pulse Oximetry 97 98 98 12/03/21 17:45 12/03/21 18:00 12/03/21 18:10 Temperature 96.5 F L 97.4 F L Pulse Rate Pulse Rate [Left P ulse Oximeter] Pulse Rate [Pulse Oximeter] 87 89 Respiratory Rate 18 18 Blood Pressure Blood Pressure [Le ft Arm] 133/77 139/78 Blood Pressure [Ri ght Upper Arm] Pulse Oximetry 99 94 87 L 12/03/21 18:15 12/03/21 18:45 12/03/21 19:15 Temperature 97.4 F L 97.8 F Pulse Rate Pulse Rate [Left P ulse Oximeter] Pulse Rate [Pulse Oximeter] 84 89 94 Respiratory Rate 16 16 16 Blood Pressure Blood Pressure [Le ft Arm] 128/79 130/78 120/76 Blood Pressure [Ri ght Upper Arm] Pulse Oximetry 98 96 96 12/03/21 20:15 12/03/21 22:15 12/03/21 23:15 Temperature 97.7 F 97.8 F 97.6 F Pulse Rate Pulse Rate [Left P ulse Oximeter] Pulse Rate [Pulse Oximeter] 96 106 H 90 Respiratory Rate 18 16 18 Blood Pressure Blood Pressure [Le ft Arm] 142/87 H 127/88 129/81 Blood Pressure [Ri ght Upper Arm] Pulse Oximetry 97 96 97 12/04/21 03:00 Temperature 97.5 F L Pulse Rate Pulse Rate [Left P ulse Oximeter] Pulse Rate [Pulse Oximeter] 76 Respiratory Rate 20 Blood Pressure Blood Pressure [Le ft Arm] 126/77 Blood Pressure [Ri ght Upper Arm] Pulse Oximetry 98 Documenting provider has reviewed patient's vital signs: yes Labs/Imaging Labs Labs: LFTs: Bilirubin 5.5, total bilirubin 2.5 Imaging Imaging: None this morning Progress Note: A&P Assessment and plan (1) Acute cholecystitis: Status: Acute Assessment and Plan: Patient is postop day 1 laparoscopic cholecystectomy with intraoperative cholangiogram. Evidence of hemorrhagic and necrotic gallbladder. Cholangiogram demonstrated free-flowing contrast into the duodenum with no evidence of stones. This morning he does have elevation in his LFTs, specifically elevated direct bilirubin. Drain has dark sanguinous output. Will plan to trend labs with patient staying another night in the hospital. -regular diet -encourage ambulation -TKO IV fluids -IV and p.o. pain meds as needed -a.m. LFTs
--- NOTE | 2021-12-04 15:31 | PC.NURSE ---
VSS AND AFEBRILE. PAIN CONTROLLED WITH PERCOCET. TOLERATING REGULAR DIET WITH NO C/O N/V. LAP SITES INTACT. ANTONINA DRAINING BLOODY DRAINAGE. AMBULATING IN HALLWAY.
--- NOTE | 2021-12-04 22:19 | PC.NURSE ---
Shift [id number]- Patient is up independently. Pain is well-managed with PRN pain medications and he rates it 1-5/10 this shift. Urine is dark chris, but getting somewhat wellness coach. He is given demonstration of stripping ANTONINA drain. ANTONINA with 5mLs output this shift. He is tolerating eating and drinking without issue.
[2021-12-05 03:30] VITALS: BP 123/82; PULSE 81; RESP 16; TEMP 36.2; O2SAT 95
[2021-12-05] MEDS: OxyCODONE/APAP 5-325 TABLET PO ×3 (03:35→11:21)
--- NOTE | 2021-12-05 05:20 | PC.NURSE ---
Shift note: The pt has been reporting mild abdominal pain; the pain has been managed with Percocet. Denied nausea or vomiting. The pt stated that he has been passing flatus; mild abdominal distention noted; the abdomen is soft to touch , hypoactive bowel sound noted. The pt ambulated in the [facility] in the middle of the night. Small drain noted on the Raj tube site.
[2021-12-05 07:54] LABS: Albumin* 3.1 g/dL (3.3-5.0)
[2021-12-05 07:57] LABS: Alanine Aminotransferase* 95 U/L (4-50); Alkaline Phosphatase* 123 U/L (40-150); Aspartate Amino Transferase* 60 U/L (12-35); Bilirubin Direct* 1.9 mg/dL (0.0-0.5); Total Protein* 6.6 g/dL (6.0-8.3)
[2021-12-05 08:21] VITALS: BP 131/78; PULSE 96; TEMP 36.5; O2SAT 92
--- NOTE | 2021-12-05 10:53 | PM.DS1 ---
DS: Providers Provider Date Seen: 12/05/21 Date of admission: 12/04/21 10:47 Primary care physician: Laura Tadeo PA-C Admitting Clinician: Laura Love MD Attending Physician on discharge: Laura Love MD DS: Diagnosis Discharge Diagnosis (1) Acute cholecystitis: Status: Acute DS: Summary Hospital Course Hospital Course: 61yo male patient who presented to the emergency department with findings consistent with acute cholecystitis. He underwent a laparoscopic cholecystectomy with intraoperative cholangiogram A drain was left in place. On postop day 1 he did have elevation in his liver function test, despite a negative intraoperative cholangiogram. On postop day 2 his bilirubin did start to trend down towards normal. The drain was removed. On the day of discharge the patient was tolerating regular diet, pain was well controlled with oral medications and he was ambulating independently. Will follow up with the patient in clinic on Tuesday for repeat labs and evaluation. Status at Discharge Functional status at discharge: independent ambulation Overall status at discharge: patient is progressing back to baseline Time Spent with Patient Time attestation: Total time spent providing and/or coordinating discharge services: Exam Narrative: Exam Narrative: General: Alert and oriented, no acute distress Abdomen: Soft, nontender, incisions in place clean/dry/intact. ANTONINA drain with minimal serosanguineous output. Const: Vital Signs, click to edit/add: Vital Signs - 24 hr 12/04/21 11:00 12/04/21 16:32 12/04/21 19:00 Temperature 97.8 F 97.6 F 97.8 F Pulse Rate [Pulse Oximeter] 79 95 83 Respiratory Rate 16 16 16 Blood Pressure [Le ft Arm] 130/72 147/85 H 122/73 Pulse Oximetry 94 97 93 12/04/21 23:30 12/04/21 23:40 12/05/21 03:30 Temperature 97.6 F 97.2 F L Pulse Rate [Pulse Oximeter] 86 81 Respiratory Rate 16 16 Blood Pressure [Le ft Arm] 121/75 123/82 Pulse Oximetry 88 92 95 12/05/21 08:21 Temperature 97.7 F Pulse Rate [Pulse Oximeter] 96 Respiratory Rate Blood Pressure [Le ft Arm] 131/78 Pulse Oximetry 92 DS: Data Data Completed and Pending Labs on day of discharge: Labs from last 24 hours 12/05/21 06:39 Total Bilirubin 4.0 H Direct Bilirubin 1.9 H AST 60 H ALT 95 H Alkaline Phosphatase 123 Total Protein 6.6 Albumin 3.1 L Discharge Plan Discharge Disposition: Home, Self-Care Date of Admission: 12/04/21 10:47 Attending Provider on Discharge: Laura Love Primary Care Provider: Laura Tadeo Condition: Stable Anticipated Discharge Date/Time: 12/05/21 10:45 Discharge Medications: New senna 8.6 mg capsule 8.6 mg PO BID PRN (Reason: constipation) Qty: 90 0RF Rx Instructions: Please take stool softeners while on narcotic pain medication. Stop if having > 2 stools per day. oxycodone 5 mg tablet 5 mg PO Q6H PRN (Reason: pain) Qty: 15 0RF Continued omeprazole 20 mg capsule,delayed release(DR/EC) 20 mg PO BID 0RF Label Comments: TAKE 1 CAPSULE BY MOUTH DAILY alendronate 70 mg tablet 70 mg PO Q7D 0RF Label Comments: TAKE 1 TABLET BY MOUTH EVERY 7 DAYS ON AN EMPTY STOMACH cholestyramine-aspartame [Cholestyramine Light] 4 gram powder in packet 1 ea PO BID 0RF Humira(CF) Pen 40 mg/0.4 mL pen injector kit 40 mg SUBCUT Q7D 0RF Discharge Orders: Discharge Order (Routine); Ordered 12/05/21 Ordered By: Laura Love Patient Education: Laxative, Stimulant (By mouth), Oxycodone, Rapid Release (By mouth), Abdominal Pain (ED), General Anesthesia (DC), Laparoscopic Cholecystectomy (DC), Post-Operative Instructions: Laparoscopic Cholecystectomy Activity Level: No Restrictions and Activity as Tolerated Follow Up Appointments: Laura Love MD [Staff Physician] - (Patient to be seen 12/09 in Surgery clinic. Liver Panel to be drawn prior to appointment. ) Laura Tadeo, DEBBIC [Primary Care Provider] - Forms: [employer] Info Instructions
--- NOTE | 2021-12-05 13:08 | PC.NURSE ---
Discharge: Patient pleasant and cooperative, independent in room. Alert and oriented. IV removed with catheter intact. Pain controlled with PRN medication. Dr. Love in to see earlier and removed ANTONINA drain. Discharge instructions given, follow ups reviewed, discussed medications. Questions answered as needed. Vitals stable and WNL. Tolerating regular diet at time of discharge. Patient discharged from unit @ 1250 via wheelchair, met at ED entrance.
== END 2021-12-05 12:50 | disposition home or self-care (01) | DRG 418 ==
LOC: ED 11:13 → OR 13:02 → MEDSURG 17:02 → OR 12-04 11:03 → MEDSURG 12-04 11:03
PROVIDERS: Admitting Provider Surgery; Emergency Provider Family Medicine; PCP Physician Assistant Medical; Visit Provider Surgery
PROC: 0FT44ZZ Resection of Gallbladder, Percutaneous Endoscopic Approach (ICD-10-PCS; CPT 47563; principal; 2021-12-03 12:00)
DX: K81.2 Acute cholecystitis with chronic cholecystitis (principal); K50.90 Crohn's disease, unspecified, without complications; K91.71 Accidental puncture and laceration of a digestive system organ or structure during a digestive system procedure; K21.9 Gastro-esophageal reflux disease without esophagitis; M10.9 Gout, unspecified
CPT/HCPCS: 00790; 36415; 71260; 74300; 76000; 76705; 80053; 80076; 81003; 81015; 82248; 83605; 85025; 85379; 87635; 88304; 99140; 99283; 99284; 99285; A9270; J1170; J2250; J2405; J2543; J2704; J3010; J3490; J7120; Q9967

== ENCOUNTER 2021-12-09 13:28 | Outpatient (CLI) | payer OTHER, SELFPAY ==
[2021-12-09 16:43] LABS: Alanine Aminotransferase* 69 U/L (4-50); Alkaline Phosphatase* 429 U/L (40-150); Aspartate Amino Transferase* 59 U/L (12-35); Bilirubin Direct* 0.5 mg/dL (0.0-0.5); Bilirubin Total* 0.7 mg/dL (0.1-1.5); Total Protein* 6.4 g/dL (6.0-8.3)
== END 2021-12-09 13:29 | disposition home or self-care (01) ==
PROVIDERS: PCP Physician Assistant Medical; Visit Provider Surgery
DX: K81.0 Acute cholecystitis (principal)
CPT/HCPCS: 80076

== ENCOUNTER 2022-03-05 22:23 | Outpatient (RCR) | payer OTHER, SELFPAY ==
[2022-03-05 23:21] LABS: Basophils Absolute Auto 0.05 K/uL (0.00-0.30); Basophils Percent Auto 0.7 % (0.0-3.0); Eosinophils Percent Auto 1.4 % (0.0-7.0); Hematocrit 38.5 % (37.0-53.0); Hemoglobin* 12.6 gm/dL (13.5-17.5); Immature Granulocytes Abs Auto 0.02 K/uL (0.00-0.30); Lymphocytes Absolute Auto 2.93 K/uL (0.90-2.90); Lymphocytes Percent Auto 42.3 % (20-44); Mean Corpuscular HGB Conc 33 gm/dL (32-36); Mean Corpuscular Hemoglobin 29 pg (26-34); Mean Corpuscular Volume 90 fL (80-100); Monocytes Percent Auto 9.5 % (0.0-11.0); Neutrophils Absolute Auto 3.16 K/uL (1.7-7.0); Neutrophils Percent Auto 45.8 % (42.0-72.0); Platelet Count* 281 K/uL (140-440); RDW Coefficient of Variation % 14.4 % (11.5-15.5); Red Blood Count 4.28 m/uL (4.30-5.90); White Blood Count* 6.92 K/uL (4.50-11.00)
[2022-03-05 23:23] LABS: Albumin* 4.1 g/dL (3.3-5.0)
[2022-03-05 23:26] LABS: Alanine Aminotransferase* 50 U/L (4-50); Alkaline Phosphatase* 162 U/L (40-150); Aspartate Amino Transferase* 44 U/L (12-35); Bilirubin Direct* 0.1 mg/dL (0.0-0.5); Bilirubin Total* 1.1 mg/dL (0.1-1.5); Total Protein* 7.6 g/dL (6.0-8.3)
[2022-03-05 23:27] LABS: Slide Review Reflex No
== END 2023-02-12 06:27 | disposition home or self-care (01) ==
LOC: NPINS 22:23
PROVIDERS: PCP Physician Assistant Medical
DX: K50.80 Crohn's disease of both small and large intestine without complications (principal)
CPT/HCPCS: 80076; 85025

== ENCOUNTER 2023-01-04 09:06 | Outpatient (CLI) | payer OTHER, SELFPAY | END 2023-01-04 09:07 | disposition home or self-care (01) | LOC: NFLDREF 17:34 | PROVIDERS: PCP Physician Assistant Medical; Referring Provider Physician Assistant Medical; Visit Provider Physician Assistant Medical | DX: Z00.00 Encounter for general adult medical examination without abnormal findings (principal); D64.9 Anemia, unspecified; M85.859 Other specified disorders of bone density and structure, unspecified thigh; Z13.6 Encounter for screening for cardiovascular disorders; Z12.5 Encounter for screening for malignant neoplasm of prostate | CPT/HCPCS: 80053; 80061; 82306; 82607; 82728; 84153 ==

== ENCOUNTER 2023-03-02 15:26 | Outpatient (CLI) | payer OTHER, SELFPAY ==
--- NOTE | 2023-03-02 15:30 | CRLHL7_ITS ---
For Patients: As a result of the Century Cures Act, medical imaging exams and procedure reports are released immediately into your electronic medical record. You may view this report before your referring provider. If you have questions, please contact your health care provider. DXA BONE MINERAL DENSITY STUDY Reason for exam: osteopenia of neck femur. Current height (in): 69. Weight (lb): 175. Menopause age: N/A Ethnicity: White 1. Have you had a previous hip or vertebral fracture? No. 2. Have you had any fractures during your adult life which did not result from significant trauma (e.g., auto accident)? No. 3. Did either of your parents have a hip fracture? No. 4. Do you smoke? No. 5. Have you ever taken Glucocorticoids? No. 6. Do you have rheumatoid arthritis? No. 7. Do you have secondary osteoporosis? No. 8. Do you drink 3 or more alcoholic drinks per day? No. 9. Are you being treated for osteoporosis? Yes. 10. Have you ever taken any of the following medications: Actonel, Evista, Fosamax, Miacalcin, Reclast, Boniva, Forteo, HRT (i.e., estrogen/hormone therapy), Protelos, Prolia, Vitamin D, Calcium, other ??? please specify. ANSWER: Yes, Fosamax, vitamin D, and calcium. 11. Do you have any of the following medical conditions: Anorexia or bulimia, asthma or emphysema, end stage renal disease, hyperparathyroidism, any seizure disorders, cancer, inflammatory bowel diseases, hysterectomy, other ??? please specify. ANSWER: Yes, inflammatory bowel disease 12. What was your maximum height (inches)? 70. 13. Do you perform weight bearing exercise regularly? Yes. 14. Do you regularly consume dairy products? Yes. 15. Do you drink caffeinated beverages? Yes. TECHNIQUE: Bone mineral density study was performed using the [employer]. FINDINGS: The results of the study expressed as bone mineral density (BMD) are as follows: Lumbar spine L1 to L4: BMD: 1.024 g/cm2. T-score: -0.6. Z-score: 0.1 Neck Left: BMD: 0.786 g/cm2. T-score: -1.1. Z-score: -0.1 Right: BMD: 0.731 g/cm2. T-score: -1.5. Z-score: -0.5 Total Left: BMD: 0.890 g/cm2. T-score: -0.9. Z-score: -0.5 Right: BMD: 0.863 g/cm2. T-score: -1.1. Z-score: -0.6 IMPRESSION: Osteopenia. *Comparison exams done prior to 10/2019 were performed on different unit, [facility]. COMPARISON: Compared with scan of 02/12/2021, the bone mineral density has increased by 2.4 percent at the spine and increased by 1.7 percent at the hip. Compared with scan of 03/08/2019, the bone mineral density has increased by 3.6 percent at the spine and increased by 6.9 percent at the hip. Sixto Lee M.D. Diagnostic Radiologist [email or web address] ROYCE/stacie jnahomy/Dictated by: Sixto Lee MD @ 03/07/2023 8:50:00 AM (Electronically Signed)
== END 2023-03-02 15:27 | disposition home or self-care (01) ==
LOC: RAD 15:27
PROVIDERS: PCP Physician Assistant Medical; Visit Provider Physician Assistant Medical
DX: M85.859 Other specified disorders of bone density and structure, unspecified thigh (principal)
CPT/HCPCS: 77080

== ENCOUNTER 2023-06-13 14:27 | Outpatient (CLI) | payer OTHER, SELFPAY ==
--- OUTSIDE RECORDS SUMMARY | 2023-06-13 14:30 | XMS_ITS | Encounter Summary ---
Author Name Unknown Organization [place] Address [facility] [place] [address] Care Team Providers Care Tow Boat Captain Name Role Phone Carrie Vargas Ann Primary Care Provider Unavailab le Encounter Details Date Type Department Care Team (Late st Contact Info) Description 05/30/2023 [facility] [address] [place] [phone] Jessica Kim, RN Social History Tobacco Use Types Packs/Day Years Used Date Smoking Tobacco: Never Smokeless Tobacco: Never Alcohol Use Standard Drinks/Week Comments Yes 0 (1 standard drink = 0.6 oz pur e alcohol) 1 drink per month Adolescent Education Answer Date Record ed Getting School Help Needed Not on file 02/19 Sex and Gender Information Value Date Recorded Sex Assigned at Not on file Gender Identity Not on file Sexual Orientation Not on file documented as of this encounter Miscellaneous Notes * Telephone Encounter - Jessica Kim RN - 05/30/2023 9:04 AM CST [facility] Received call back from patient 05/27 1320 returning our call. Called patient Mon at next work shift, spoke about surgery 2-21 with possible stoma, scheduled patient for marking per patient preference for Jun 30 at 14:00. Jessica [place] 1st choice: Securely message with [employer] ([facility]) (2nd option: [facility] Office , messages checked periodically Mon- Fri 8a-4p) UP WORKER documented in this encounter Plan of Treatment Upcoming Encounters Date Type Department Care Team (Latest Contact Info) Description 06/30/2023 2:00 PM WIND UP WORKER Appointment [facility] W[facility] Ostomy Clinic [place] [address], [address] [place] [phone] 743, Ostomy Wound Room, RN 07/06/2023 7:30 AM WIND UP WORKER Hospital Encounter [facility] [address] [facility] [phone] Laura Camarillo MD COLON RECTAL SURGERY [address] [place] [address] 07/06/2023 7:30 AM WIND UP WORKER - 07/06/2023 12:40 PM WIND UP WORKER Surgery [facility] [address] [place] [phone] Laura Camarillo MD COLON RECTAL SURGERY [address] [place] [phone] exploratory laparotomy, possible bowel resection, possible stricture plasty Scheduled Procedures Name Priority Associated Diagnoses Date/Ti me LAPAROTOMY Crohn's disease, small intestine (H) 07/06/2023 7:30 AM WIND UP WORKER documented as of this encounter Goals Goal Patient Goal Type Associated Problems Recent Progress Patient-Stated? Author MYC ECC SURG ENROLL Care Plan MyC ECC SURG ENROLL No Naomy Vargas documented as of this encounter Visit Diagnoses Not on filedocumented in this encounter Additional Health Concerns Problem Noted Date Diagnosed Date MyC ECC SURG ENROLL 05/26/2023 documented as of this encounter Care Teams Tow Boat Captain Relationship Specialty Start Date End Date Carrie Vargas PCP - General Family Practice 04/26/14 documented as of this encounter
--- OUTSIDE RECORDS SUMMARY | 2023-06-13 14:30 | XMS_ITS | Referral Summary ---
Author Name Unknown Organization [place] Address [address] [place] [address] Care Team Providers Care Rn Admissions Name Role Phone Carrie Vargas Primary Care Provider Unavailab le Encounters Date Type Department Care Team Description 05/30/2023 Telephone [facility] W[facility] Ost[facility] [place] [address] [place] [phone] Jessica Kim, RN 05/27/2023 Telephone [facility] Ostomy [facility] [place] [address] [place] [phone] Jessica Kim, RN from Last 3 Months Allergies Active Allergy Reactions Criticality Noted Date Comments Amoxicillin 07/04/2003 diarrhea Chicken Allergy 06/16/2011 Gluten Meal 06/04/2014 Mercaptopurine 07/04/2003 6 MP causes leukopenia Infliximab Injection 01/25/2005 Delayed reaction, severe arthralgias Testosterone Rash 04/14/2005 Medications Medication Sig Dispensed Refills Start Date End Date Status MULTI-VITAMIN OR TABS 1 qd 0 07/04/2003 Active HYDROCORTISONE 1 % EX CREA as needed 0 Active IMODIUM A-D 2 MG OR TABS 3 tablets in am 0 Active HUMIRA 40 MG/0.8ML SC KIT 40 MG EVERY WEEK 0 Active CALCIUM 500 + D 500-200 MG-IU OR TABS 2 tablets in pm 0 Active Lecithin (SOYA LECITHIN) 1200 MG CAPS Take 1 capsule by mouth daily. 0 05/31/2011 Active fish oil-omega-3 fatty acids (OMEGA-3) 1000 MG capsule Take 2 capsules by mouth daily. 0 05/31/2011 Active acetaminophen (TYLENOL) 500 MG tablet Take 1 tablet by mouth every 6 hours as needed for pain. EVERY 4 TO 6 HOURS NEEDED FOR PAIN, MAXIMUM OF 8 PER DAY 0 05/31/2011 Active B Complex TABS Take 1 tablet by mouth daily. 0 05/31/2011 Active loratadine (CLARITIN) 10 MG tabletIndications:Al lergic rhinitis, cause unspecified Take by mouth. 0 05/31/2011 Act radha Ferrous Sulfate 47.5 MG TBCR Take 1 tablet by mouth daily. 0 05/31/2011 Active hydrocortisone (WESTCORT) 0.2 % creamIndications:Clifford matitis Apply topically 3 times daily as needed. Apply sparingly to affected area. 45 g 0 05/31/2011 Active nystatin-triamcinolo ne (MYCOLOG II) creamIndications:Kadie ilosis Apply topically 2 times daily. if needed 30 g 1 06/11/2011 Active Cholecalciferol (VITAMIN D) 2000 UNITS tabletIndications:Vi tamin D deficiency Take 2,000 Units by mouth daily. 0 04/05/2012 Active cholestyramine (QUESTRAN) 4 G packetIndications:Re gional enteritis of unspecified site 1 packet 2 times daily (with meals). 0 06/12/2012 Active alendronate (FOSAMAX) 70 MG tabletIndications:Di sorder of bone and cartilage, unspecified Take 1 tablet (70 mg) by mouth once a week ON AN EMPTY STOMACH. 12 tablet 0 03/22/2013 Active cyanocobalamin 1000 MCG/ML injectionIndications :Gluten-sensitive enteropathy,Regional enteritis of unspecified site Inject 1 mL (1,000 mcg) into the muscle every 30 days 3 mL 0 02/09/2014 Active BUDESONIDE PO Take by mouth 3 times daily Unsure of dose 0 Active mesalamine (CANASA) [address] 1,000 mg rectally every 48 hours 0 Active oxyCODONE-acetaminop hen (PERCOCET) 5-325 MG per tabletIndications:Re gional enteritis of unspecified site Take 1-2 tablets by mouth every 4 hours as needed for pain (moderate to severe) 30 tablet 0 06/05/2014 Active lidocaine (XYLOCAINE) 2 % jellyIndications:Reg ional enteritis of unspecified site Apply topically as needed for moderate pain Apply to anus qid as needed for pain 30 mL 0 06/05/2014 Active Active Problems Problem Noted Date Diagnosed Date Vitamin D deficiency 04/05/2012 ACP (advance care planning) 12/06/2011 Overview: Advance Directive received and scanned. Click on Code in the patient header to view. Vero Diaz RN 12/15/2011 12/06/11 patient brought in copy of health care directive Lactose intolerance 05/31/2011 Dyslipidemia, LDL goal <160 03/15/2010 Premature beats 02/18/2005 Overview: Problem list name updated by automated process. Provider to review Iron deficiency anemia 09/23/2004 Overview: Problem list name updated by automated process. 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 Provider to review Disorder of bone and cartilage 07/04/2003 Overview: Problem list name updated by automated process. Provider to review Gluten-sensitive enteropathy Overview: diagnosed 2008 Immunizations Name Administration Dates Next Due Influenza (H1N1) 05/24/2009 Influenza (IIV3) PF 02/14/2012, 1,03/26/2009,03/08/2008, 6,03/11/2004,03/26/2002 Pneumococcal 23 valent 02/21/2008,09/10/1999 TD,PF 7+ (Tenivac) 02/28/2003 TDAP Vaccine (Adacel) 06/13/2012 Social History Tobacco Use Types Packs/Day Years [...] on file Sexual Orientation Not on file Last Filed Vital Signs Vital Sign Reading Time Taken Comments Blood Pressure 118/76 06/05/2014 3:30 PM COMMERCIAL BANKER Pulse 67 05/11/2014 2:08 PM COMMERCIAL BANKER Temperature 36.6 ??C (97.8 ??F) 06/05/2014 3:30 PM CS T Respiratory Rate 15 06/05/2014 3:30 PM COMMERCIAL BANKER Oxygen Saturation 98% 06/05/2014 3:30 PM COMMERCIAL BANKER Inhaled Oxygen Concentration - - Weight 66.9 kg (147 lb 9 oz) 06/05/2014 1:04 PM COMMERCIAL BANKER Height 175.3 cm (5' 9) 06/05/2014 1:04 PM COMMERCIAL BANKER Body Mass Index 21.79 06/05/2014 1:04 PM COMMERCIAL BANKER Plan of Treatment Upcoming Encounters Date Type Department Care Team (Latest Contact Info) Description 06/30/2023 2:00 PM COMMERCIAL BANKER Appointment [facility] [address] [place] [phone], Ostomy Wound Room, RN 07/06/2023 7:30 AM COMMERCIAL BANKER Hospital Encounter [facility] [address] [place] [phone] Laura Camarillo MD COLON RECTAL SURGERY [address] [place] [address] 07/06/2023 7:30 AM COMMERCIAL BANKER - 07/06/2023 12:40 PM COMMERCIAL BANKER Surgery [facility] [address] [place] [phone] Laura Camarillo MD COLON RECTAL SURGERY [address] [place] [address] exploratory laparotomy, possible bowel resection, possible stricture plasty Scheduled Procedures Name Priority Associated Diagnoses Date/Ti me LAPAROTOMY Crohn's disease, small intestine (H) 07/06/2023 7:30 AM COMMERCIAL BANKER Goals Goal Patient Goal Type Associated Problems Recent Progress Patient-Stated? Author MYC ECC SURG ENROLL Care Plan MyC ECC SURG ENROLL No Naomy Vargas Care pathway for general surgery Care Plan Care pathway for general surgery No Oswald Ogden MYC ECC SURG DAY 10 MED Care Plan Care pathway for general surgery No Oswald Ogden Additional Health Concerns Problem Noted Date Diagnosed Date MyC ECC SURG ENROLL 05/26/2023 Care pathway for general surgery 06/07/2023 Care Teams Rn Admissions Relationship Specialty Start Date End Date Carrie Vargas PCP - General Family Practice 04/26/14
--- OUTSIDE RECORDS SUMMARY | 2023-06-13 14:30 | XMS_ITS | Clinical Summary ---
Author Name Unknown Organization [facility] Address [address] [place] [id number] Care Team Providers Care Hris Administrator Name Role Phone Carrie Vargas Ann Primary Care Provider Unavailab le Allergies Active Allergy Reactions Criticality Noted Date [...] to review Gluten-sensitive enteropathy Overview: diagnosed 2008 Encounters Date Type Department Care Team Description 05/30/2023 Telephone [facility] Ostomy [facility] [place] [address] [place] [phone] Jessica Kim, MICHELLE 05/27/2023 Telephone [facility] Ostomy [facility] [place] [address] [place] [phone] Jessica Kim, RN from Last 3 Months Immunizations Name Administration Dates Next Due Influenza (H1N1) 05/24/2009 Influenza (IIV3) PF 02/14/2012, 1,03/26/2009,03/08/2008, 6,03/11/2004,03/26/2002 Pneumococcal 23 valent 02/21/2008,09/10/1999 TD,PF 7+ (Tenivac) 02/28/2003 TDAP Vaccine (Adacel) 06/13/2012 Family History Medical History Relation Comments Family History Negative Brother 1 b 6/b 1957/b 1958 Cancer Father lung cancer Genitourinary Problems Father benign gr owth removed from kidney Heart Disease Father stint Lipids Father Prostate Cancer Maternal Grandfather 65 Diabetes Mother 69 Lipids Mother Relation Status Comments Brother 1 Alive Brother 2 Alive Brother 3 Alive Father Alive Maternal Grandfather Mother Alive Sister (Age 3) genetic heart p shirley Social History Tobacco Use Types Packs/Day Years [...] Comments Blood Pressure 118/76 06/05/2014 3:30 PM PREASSEMBLER PRINTED CIRCUIT BOARD Pulse 67 05/11/2014 2:08 PM PREASSEMBLER PRINTED CIRCUIT BOARD Temperature 36.6 ??C (97.8 ??F) 06/05/2014 3:30 PM CS T Respiratory Rate 15 06/05/2014 3:30 PM PREASSEMBLER PRINTED CIRCUIT BOARD Oxygen Saturation 98% 06/05/2014 3:30 PM PREASSEMBLER PR[employer]ED CIRCUIT BOARD Inhaled Oxygen Concentration - - Weight 66.9 kg (147 lb 9 oz) 06/05/2014 1:04 PM PREASSEMBLER PR[employer]ED CIRCUIT BOARD Height 175.3 cm (5' 9) 06/05/2014 1:04 PM PREASSEMBLER PR[employer]ED CIRCUIT BOARD Body Mass Index 21.79 06/05/2014 1:04 PM PREASSEMBLER PR[employer]ED CIRCUIT BOARD Plan of Treatment Upcoming Encounters Date Type Department Care Team (Latest Contact Info) Description 06/30/2023 2:00 PM PREASSEMBLER PRINTED CIRCUIT BOARD Appointment [facility] Wound Ostomy Clinic [place] [address], [address] [place] [phone], Ostomy Wound Room, RN 07/06/2023 7:30 AM PREASSEMBLER PRINTED [employer] BOARD Hospital Encounter [facility] [address] [place] [phone] Laura Camarillo MD COLON RECTAL SURGERY [address] [place] [address] 07/06/2023 7:30 AM PREASSEMBLER PRINTED CIRCUIT BOARD - 07/06/2023 12:40 PM PREASSEMBLER [employer] BOARD Surgery [facility] [address] [place] [address] Laura Camarillo MD COLON RECTAL SURGERY [address] [place] [address] exploratory laparotomy, possible bowel resection, possible stricture plasty Scheduled Procedures Name Priority Associated Diagnoses Date/Ti me LAPAROTOMY Crohn's disease, small intestine (H) 07/06/2023 7:30 AM PREASSEMBLER PR[employer]ED [employer] BOARD Health Maintenance Due Date Last Done Comments ANNUAL REVIEW OF HM ORDERS 1960 CT COLONOGRAPHY 1960 FLEX SIG 1960 sDNA (Cologuard) 1960 HIV SCREENING 1975 HEPATITIS C SCREENING 1978 YEARLY PREVENTIVE VISIT 07/04/2004 07/04/2003 LIPID 07/13/2012 01/11/2012, 05/16, 04/17/2010, Additional history exists DEXA 06/15/2013 06/15/2010, 05/18, 03/08/2008, Additional history exists PSA 05/31/2014 05/31/2011 COLONOSCOPY 11/04/2014 11/04/2009, 12/02/2004 COLORECTAL CANCER SCREENING 11/04/2014 FIT 05/11/2015 05/11/2014 ADVANCE CARE PLANNING 12/05/2016 12/06/2011 RSV VACCINE ( & 60+) (1 - 1-dose 60+ series) 2020 DTAP/TDAP/TD IMMUNIZATION (2 - Td or Tdap) 06/13/2022 06/13/2012, 02/28/2003, 02/28/2003 PHQ-2 (once per calendar year) 2023 Pneumococcal Vaccine: Pediatrics (0 to 5 Years) and At-Risk Patients (6 to 64 Years) (4 of 4 - PPSV23 or PCV20) 2025 12/15/2015, 02/21/2008, 09/10/1999 ZOSTER IMMUNIZATION Completed 11/22/2019, 9 COVID-19 Vaccine Completed 02/17/2023, 09/2021, 08/15/2021, Additional history exists INFLUENZA VACCINE Completed 03/03/2023, , 03/03/2021, Additional history exists HPV IMMUNIZATION Aged Out No longer e ligible based on patient's age to complete this topic IPV IMMUNIZATION Aged Out No longer e ligible based on patient's age to complete this topic MENINGITIS IMMUNIZATION Aged Out No l onger eligible based on patient's age to complete this topic RSV MONOCLONAL ANTIBODY Aged Out No l onger eligible based on patient's age to complete this topic Goals Goal Patient Goal Type Associated Problems [...] pathway for general surgery 06/07/2023 Care Teams Hris Administrator Relationship Specialty Start Date End Date Carrie Vargas PCP - General Family Practice 04/26/14
--- OUTSIDE RECORDS SUMMARY | 2023-06-13 14:30 | XMS_ITS | Clinical Summary ---
Author Name Unknown Organization [facility] Address [place], [place] [address] Care Team Providers Care Personal Banking Representative Name Role Phone Laura Tadeo PA-C Primary Care Provider Allergies Active Allergy Reactions Criticality Noted Date Comments Amoxicillin Hives 08/07/2021 Chicken Derived GI Upset 08/07/2021 Gets flatulence. Poultry meat. Eggs are not a problem Gluten GI Upset 08/07/2021 Infliximab Arthralgia 08/07/2021 Lactose GI Upset 08/07/2021 Mercaptopurine Leukopenia 08/07/2021 Milk GI Upset 08/07/2021 Testosterone Rash 04/14/2005 Medications Medication Sig Dispensed Refills Start Date End Date Status omeprazole (PRILOSEC) 20 mg Delayed-Release capsule Take 20 mg by mouth once daily. 0 Active cyanocobalamin (VITAMIN B12) injection Inject 1,000 mcg intramuscular. Q30D 0 Active alendronate (FOSAMAX) 70 mg tablet Take 70 mg by mouth once weekly. Take on empty stomach with full glass of water. Do not lie down for 1 hr. 0 Active clindamycin 1% (CLEOCIN-T) 1 % lotion Apply topically to affected area(s) 2 times daily. 0 Active clobetasol cream 0.05% (TEMOVATE) 0.05 % cream Apply topically to affected area(s) 2 times daily. 0 Active hydrocortisone 2.5% cream Apply topically to affected area(s) 2 times daily. 0 Active cholecalciferol, Vitamin D3, 2,000 unit tablet Take 4,000 units by mouth 2 times daily. 0 Active cetirizine (ZYRTEC) 10 mg tablet Take 10 mg by mouth once daily. 0 Active cholestyramine-aspa rtame (Cholestyramine Light) 4 gram powder Mix 4 g in liquid then take by mouth 2 times daily. 0 Active calcium carbonate (OS-MELONIE 500) 500 mg calcium (1,250 mg) tablet Take 1,000 mg by mouth 2 times daily with meals. 0 Active adalimumab (HUMIRA) 40 mg/0.8 mL injection Inject 40 mg subcutaneous once weekly. 0 Active acetaminophen (TYLENOL EXTRA STRGTH) 500 mg tablet Take 1,000 mg by mouth. Max acetaminophen dose: 4000mg in 24 hrs. 0 Active omega-3 fatty acids (FISH OIL) cap Take 1,000 mg by mouth 2 times daily. 0 Active multivit-mins no.63/iron/folic (M-VIT ORAL) Take by mouth once daily. 0 Active lecithin 1,200 mg cap Take 1,200 mg by mouth once daily. 0 Active loperamide (IMODIUM) 2 mg capsule Take 6 mg by mouth once daily. Take 4mg by mouth with 1st loose stool, then 2mg with each subsequent loose stool. Max 16 mg in 24 hrs 0 Active FERROUS SULFATE ORAL Take 47.5 mg by mouth once daily. 0 Active vitamin B complex (B COMPLEX 1 ORAL) Take by mouth once daily. 0 Active loratadine 10 mg cap Take by mouth once daily. 0 Active allopurinoL (ZYLOPRIM) 100 mg tablet 0 10/13/2021 Active calcium with vitamin D3 (OS-MELONIE 500 + D) tablet Take by mouth. 0 Activ e Active Problems No known active problems Social History Tobacco Use Types Packs/Day Years Used Date Smoking Tobacco: Never Smokeless Tobacco: Never Alcohol Use Standard Drinks/Week Comments Yes 0 (1 standard drink = 0.6 oz pur e alcohol) once a month at most Sex and Gender Information Value Date Recorded Sex Assigned at Not on file Gender Identity Not on file Sexual Orientation Not on file Obstetrics History Last Filed Vital Signs Vital Sign Reading Time Taken Comments Blood Pressure 114/76 12/19/2021 12:33 PM CDT Pulse 84 12/19/2021 12:33 PM CDT Temperature 36.4 ??C (97.5 ??F) 12/19/2021 12:33 PM C DT Respiratory Rate 16 12/19/2021 12:33 PM CDT Oxygen Saturation 97% 12/19/2021 12:33 PM CDT Inhaled Oxygen Concentration - - Weight 77.1 kg (170 lb) 12/19/2021 12:33 PM CDT Height 172.7 cm (5' 8) 10/21/2021 9:50 AM CDT Body Mass Index 25.85 10/21/2021 9:50 AM CDT Plan of Treatment Health Maintenance Due Date Last Done Comments Tdap 1971 Depression screening for age 12+ 1972 HIV for age 15-65 1975 BMI (ht and wt on same day) for age 18+ 1978 Hepatitis C screening for age 18-79 1978 Tetanus booster 1980 Colonoscopy through age 75 2005 Lipids for age 45-75 2005 Zoster (shingles) series for age 50+ (1 of 2) 2010 COVID-19 vaccine series (2022-24 season) 2023 08/15/2021, 03/28/2021, 08/23/2020, Additional history exists Influenza for age 50-64 01/14/2023 Pneumococcal series for age 6-64 Aged Out No longer eligible based on patient's age to complete this topic Medical Devices Implanted Type Area Mechanic Chief Device Identifier Shelf Expiration Date Model / Serial / Lot Implnt Rte Snapcone C./Lgx1.0cm - [id number] Implanted:Qty: 1 on 08/11/2021 by Alvaro Lay MD at [facility] N/A: Penis Ziebel 10/07/2022 [id number] / / [id number] Implnt [place] 100ml Conccile Iz - [id number] Implanted:Qty: 1 on 08/11/2021 by Alvaro Lay MD at [facility] N/A: Penis [employer] 07/01/2023 [id number] / / [id number] Advance Directives Latest Code Status on File Code Status Date Activated Date Inactivated Comments Full Code 08/11/2021 6:08 AM 08/11/2021 6:25 PM Question Answer Comments Code Status Discussion: Unable to Assess Preferences, Provider to review later Care Teams Personal Banking Representative Relationship Specialty Start Date End Date Laura Tadeo PA-C [address] [place] [address] PCP - General Emergency Medicine 07/22/21
--- OUTSIDE RECORDS SUMMARY | 2023-06-13 14:31 | XMS_ITS | Encounter Summary ---
Author Name Unknown Organization [facility] Address [address] [place] [address] Care Team Providers Care Perfume Compounder Name Role Phone Reed Olsen MD Primary Care Provider [phone] Carrie Vargas Primary Care Provider Unavailab le Encounter Details Date Type Department Care Team (Late st Contact Info) Description 01/20/[address] [phone] Reed Olsen MD [address] [place] [phone] [facility] Discharge Summary (Primary Dx) Social History Tobacco Use Types Packs/Day Years Used Date Smoking Tobacco: Never Smokeless Tobacco: Never Alcohol Use Standard Drinks/Week Comments Yes 0 (1 standard drink = 0.6 oz pur e alcohol) 1 drink per month Sex and Gender Information Value Date Recorded Sex Assigned at Not on file Gender Identity Not on file Sexual Orientation Not on file documented as of this encounter Plan of Treatment Upcoming Encounters Date Type Department Care Team (Latest Contact Info) Description 06/30/2023 2:00 PM BUTCHERETTE Appointment [facility] Kerri [address], [address] [place] [phone] 743, Ostomy Wound Room, RN 07/06/2023 7:30 AM BUTCHERETTE Hospital Encounter [facility] PeriOp Services [address] [place] [phone] Laura Camarillo MD COLON RECTAL SURGERY [address] [place] [phone] 07/06/2023 7:30 AM BUTCHERETTE - 07/06/2023 12:40 PM BUTCHERETTE Surgery [facility] PeriOp Services [address] [place] [phone] Laura Camarillo MD COLON RECTAL SURGERY [address] [phone] exploratory laparotomy, possible bowel resection, possible stricture plasty Scheduled Procedures Name Priority Associated Diagnoses Date/Ti me LAPAROTOMY Crohn's disease, small intestine (H) 07/06/2023 7:30 AM BUTCHERETTE documented as of this encounter Visit Diagnoses Diagnosis [facility] Discharge Summary- Primary Crohn's disease, small intestine (H) Regional enteritis of small intestine documented in this encounter Care Teams Perfume Compounder Relationship Specialty Start Date End Date Reed Olsen MD [address] [place] [phone] PCP - General 02/28/03 04/25/14 Carrie Vargas [address] [place] [phone] PCP - General Family Practice 04/26/14 documented as of this encounter
--- OUTSIDE RECORDS SUMMARY | 2023-06-13 14:31 | XMS_ITS | Encounter Summary ---
Author Name Unknown Organization [place] Address [address] [place] [address] Care Team Providers Care Rn Mds Coordinator Name Role Phone Reed Olsen MD Primary Care Provider [phone] Carrie Vargas Primary Care Provider Unavailab le Encounter Details Date Type Department Care Team (Late st Contact Info) Description 11/21/2013 [facility] Medical Advice [address] [phone] Cheyenne Beckman MA Social History Tobacco Use Types Packs/Day Years [...] (Latest Contact Info) Description 06/30/2023 2:00 PM MULTIMEDIA ENGINEER Appointment [facility] Kerri [address], [address] [place] [phone] 743, Ostomy Wound Room, RN 07/06/2023 7:30 AM MULTIMEDIA ENGINEER Hospital Encounter [facility] PeriOp Services [address] [place] [phone] Laura Camarillo MD COLON RECTAL SURGERY [address] [address] 07/06/2023 7:30 AM MULTIMEDIA ENGINEER - 07/06/2023 12:40 PM MULTIMEDIA ENGINEER Surgery [facility] Services [address] [facility] [phone] Laura Camarillo MD COLON RECTAL SURGERY [address] [place] [phone] exploratory laparotomy, possible bowel resection, possible stricture plasty Scheduled Procedures Name Priority Associated Diagnoses Date/Ti me LAPAROTOMY Crohn's disease, small intestine (H) 07/06/2023 7:30 AM MULTIMEDIA ENGINEER documented as of this encounter Visit Diagnoses Not on filedocumented in this encounter Care Teams Rn Mds Coordinator Relationship Specialty Start Date End Date Reed Olsen MD [address] [place] [phone] PCP - General 02/28/03 04/25/14 Carrie Vargas [address] [place] [phone] PCP - General Family Practice 04/26/14 documented as of this encounter
--- OUTSIDE RECORDS SUMMARY | 2023-06-13 14:31 | XMS_ITS | Encounter Summary ---
Author Name Unknown Organization [facility] Address [address] [place] [address] Care Team Providers Care Scoop Filler Name Role Phone Carrie Vargas Primary Care Provider Unavailab le Encounter Details Date Type Department Care Team (Late st Contact Info) Description 05/27/2023 [facility] [address] [place] [phone] Jessica Kim, RN Social History Tobacco Use [...] Telephone Encounter - Jessica Kim RN - 05/27/2023 8:32 AM CST [facility] Received referral from fax from [facility] ER clinic 05/26 1617. Called patient, no answer, left voicemail to request call back to schedule marking. Jessica [place] 1st choice: Securely message with [employer] ([facility] [employer] [facility]) (2nd option: [facility] Office , messages checked periodically Mon- Fri 8a-4p) ING AND INSURANCE COORDINATOR documented in this encounter Plan of Treatment Upcoming Encounters Date Type Department Care Team (Latest Contact Info) Description 06/30/2023 2:00 PM BILLING AND INSURANCE COORDINATOR Appointment [facility] Kerri [address], [address] [place] [phone] 743, Ostomy Wound Room, RN 07/06/2023 7:30 AM BILLING AND INSURANCE COORDINATOR Hospital Encounter [facility] PeriOp Services [address] [place] [address] Laura Camarillo MD COLON RECTAL SURGERY [address] [address] 07/06/2023 7:30 AM BILLING AND INSURANCE COORDINATOR - 07/06/2023 12:40 PM BILLING AND INSURANCE COORDINATOR Surgery [facility] PeriOp Services [address] [place] [address] Laura Camarillo MD COLON RECTAL SURGERY [address] [phone] exploratory laparotomy, possible bowel resection, possible stricture plasty Scheduled Procedures Name Priority Associated Diagnoses Date/Ti me LAPAROTOMY Crohn's disease, small intestine (H) 07/06/2023 7:30 AM BILLING AND INSURANCE COORDINATOR documented as of this encounter Goals Goal Patient Goal Type Associated Problems Recent Progress Patient-Stated? Author MYC ECC SURG ENROLL Care Plan MyC ECC SURG ENROLL No Naomy Vargas documented as of this encounter Visit Diagnoses Not on filedocumented in this encounter Additional Health Concerns Problem Noted Date Diagnosed Date MyC ECC SURG ENROLL 05/26/2023 documented as of this encounter Care Teams Scoop Filler Relationship Specialty Start Date End Date Carrie Vargas PCP - General Family Practice 04/26/14 documented as of this encounter
--- OUTSIDE RECORDS SUMMARY | 2023-06-13 14:31 | XMS_ITS | Encounter Summary ---
Author Name Unknown Organization [place] Address [address] [place] [address] Care Team Providers Care Spaghetti Press Helper Name Role Phone Reed Olsen MD Primary Care Provider [phone] Carrie Vargas Primary Care Provider Unavailab le Encounter Details Date Type Department Care Team (Late st Contact Info) Description 05/24/2011 MyC Medical Advice [address] [phone] [facility] Social History Tobacco Use Types Packs/Day Years [...] (Latest Contact Info) Description 06/30/2023 2:00 PM PHYSICIANS ASSISTANT Appointment [facility] Ostomy [facility] Kerri [address] [place] [phone] 743, Ostomy Wound Room, RN 07/06/2023 7:30 AM PHYSICIANS ASSISTANT Hospital Encounter [facility] PeriOp Services [address] [facility] [phone] Laura Camarillo MD COLON RECTAL SURGERY [address] [address] 07/06/2023 7:30 AM PHYSICIANS ASSISTANT - 07/06/2023 12:40 PM PHYSICIANS ASSISTANT Surgery [facility] Services [address] [place] [address] [phone] Laura Camarillo MD COLON RECTAL SURGERY [address] [address] exploratory laparotomy, possible bowel resection, possible stricture plasty Scheduled Procedures Name Priority Associated Diagnoses Date/Ti me LAPAROTOMY Crohn's disease, small intestine (H) 07/06/2023 7:30 AM PHYSICIANS ASSISTANT documented as of this encounter Visit Diagnoses Not on filedocumented in this encounter Care Teams Spaghetti Press Helper Relationship Specialty Start Date End Date Reed Olsen MD [address] [place] [phone] PCP - General 02/28/03 04/25/14 Carrie Vargas [address] [place] [phone] PCP - General Family Practice 04/26/14 documented as of this encounter
== END 2023-06-13 14:28 | disposition home or self-care (01) ==
LOC: LKVREF 14:28
PROVIDERS: PCP Physician Assistant Medical; Visit Provider Physician Assistant Medical
DX: Z13.228 Encounter for screening for other metabolic disorders (principal)
CPT/HCPCS: 80053

== ENCOUNTER 2024-02-09 15:08 | Outpatient (CLI) | payer OTHER, SELFPAY ==
--- OUTSIDE RECORDS SUMMARY | 2024-02-10 13:21 | XMS_ITS | Referral Summary ---
Author Organization [place] [facility] Address [address] [place] [address] Care Team Providers Care Residential Care Facility Manager Name Role Phone Rishabh Tadeo PA-C Primary Care Provider Allergies Active Allergy Reactions Criticality Noted Date Comments Amoxicillin 07/04/2003 diarrhea Chicken Allergy 06/16/2011 Gluten Meal 06/04/2014 Mercaptopurine 07/04/2003 6 MP causes leukopenia Infliximab Injection 01/25/2005 Delayed reaction, severe arthralgias Testosterone Rash 04/14/2005 Medications Medication Sig Dispensed Refills Start Date End Date Status MULTI-VITAMIN OR TABS 1 qd 07/04/2003 Act radha HYDROCORTISONE 1 % EX CREA as needed Active IMODIUM A-D 2 MG OR TABS 3 tablets in am Active CALCIUM 500 + D 500-200 MG-IU OR TABS 2 tablets in pm Active Lecithin (SOYA LECITHIN) 1200 MG CAPS Take 1 capsule by mouth daily. 05/31/2011 Active fish oil-omega-3 fatty acids (OMEGA-3) 1000 MG capsule Take 2 capsules by mouth daily. 05/31/2011 Active acetaminophen (TYLENOL) 500 MG tablet Take 1 tablet by mouth every 6 hours as needed for pain. EVERY 4 TO 6 HOURS NEEDED FOR PAIN, MAXIMUM OF 8 PER DAY 05/31/2011 Active B Complex TABS Take 1 tablet by mouth daily. 05/31/2011 Active loratadine (CLARITIN) 10 MG tabletIndications:All ergic rhinitis, cause unspecified Take by mouth. 05/31/2011 Active Ferrous Sulfate 47.5 MG TBCR Take 1 tablet by mouth daily. 05/31/2011 Active hydrocortisone (WESTCORT) 0.2 % creamIndications:Derm atitis Apply topically 3 times daily as needed. Apply sparingly to affected area. 45 g 0 05/31/2011 Active Cholecalciferol (VITAMIN D) 2000 UNITS tabletIndications:Vit hernandez D deficiency Take 2,000 Units by mouth daily. 04/05/2012 Active cholestyramine (QUESTRAN) 4 G packetIndications:Reg ional enteritis of unspecified site 1 packet 2 times daily (with meals). 06/12/2012 Active alendronate (FOSAMAX) 70 MG tabletIndications:Dis order of bone and cartilage, unspecified Take 1 tablet (70 mg) by mouth once a week ON AN EMPTY STOMACH. 12 tablet 0 03/22/2013 Active cyanocobalamin 1000 MCG/ML injectionIndications: Gluten-sensitive enteropathy,Regional enteritis of unspecified site Inject 1 mL (1,000 mcg) into the muscle every 30 days 3 mL prn 02/09/2014 Active BUDESONIDE PO Take by mouth 3 times daily Unsure of dose Active lidocaine (XYLOCAINE) 2 % jellyIndications:Nancy onal enteritis of unspecified site Apply topically as needed for moderate pain Apply to anus qid as needed for pain 30 mL 0 06/05/2014 Active allopurinol (ZYLOPRIM) 100 MG tablet Take 200 mg by mouth daily 10/13/2021 Active calcium carbonate 500 mg, elemental, (OSCAL 500) 1250 (500 Ca) MG TABS tablet Take 1,000 mg by mouth daily Active omeprazole (PRILOSEC) [address] capsule Take 20 mg by mouth daily 11/20/2021 Active ketoconazole (NIZORAL) 2 % external shampoo Apply topically daily as needed 05/07/2023 Active HYDROmorphone (DILAUDID) 2 MG tabletIndications:Team Assembler hn's disease of small intestine with complication (H) Take 1 tablet (2 mg) by mouth every 6 hours as needed for moderate to severe pain 15 tablet 07/11/2023 Active Active Problems Problem Noted Date Diagnosed Date Crohn's disease of small intestine with complica tion 07/06/2023 Vitamin D deficiency 04/05/2012 ACP (advance care [...] Date Smoking Tobacco: Never Smokeless Tobacco: Never Tobacco Cessation:Counseling Given: Not Answered Alcohol Use Standard Drinks/Week Comments Yes 0 (1 standard drink = 0.6 oz pur e alcohol) 1 drink per month Adolescent Education Answer Date Record ed Getting School Help Needed Not on file 02/19 Sex and Gender Information Value Date Recorded Sex Assigned at Male 08/10/2023 11:16 AM CDT Gender Identity Male 08/10/2023 11:16 AM CDT Sexual Orientation Straight 08/10/2023 11 :16 AM CDT Last Filed Vital Signs Vital Sign Reading Time Taken Comments Blood Pressure 122/72 07/11/2023 7:30 AM GEOTHERMAL INSTALLER Pulse 94 07/11/2023 7:30 AM GEOTHERMAL INSTALLER Temperature 36.4 ??C (97.5 ??F) 07/11/2023 7:30 AM CS T Respiratory Rate 18 07/11/2023 7:30 AM GEOTHERMAL INSTALLER Oxygen Saturation 100% 07/11/2023 7:30 AM GEOTHERMAL INSTALLER Inhaled Oxygen Concentration - - Weight 77.8 kg (171 lb 9.6 oz) 07/10/2023 6:29 A M GEOTHERMAL INSTALLER Height 175.3 cm (5' 9) 07/04/2023 10:00 AM GEOTHERMAL INSTALLER Body Mass Index 25.34 07/04/2023 10:00 AM GEOTHERMAL INSTALLER Plan of Treatment Not on file Goals Goal Patient Goal Type Associated Problems Recent Progress Patient-Stated? Author MYC ECC SURG ENROLL Care Plan MyC ECC SURG ENROLL No Naomy Vargas Care pathway for general surgery Care Plan Care pathway for general surgery No Oswald Ogden MYC ECC SURG DAY 10 MED Care Plan Care pathway for general surgery No Oswald Ogden Procedures Procedure Name Priority Date/Time Associated Diagnosis Comments BASIC METABOLIC PANEL Routine 07/11/2023 8:02 AM GEOTHERMAL INSTALLER COLONOSCOPY Routine 07/06/2023 10:44 AM GEOTHERMAL INSTALLER OCCULT BLOOD STOOL STAT 05/11/2014 5: 29 PM GEOTHERMAL INSTALLER Diarrhea LIPID PROFILE Routine 01/11/2012 8:23 AM CDT Dyslipidemia, LDL goal <160 PROSTATE SPECIFIC ANTIGEN SCREEN Routine 05/31/2011 9:53 AM GEOTHERMAL INSTALLER Screening for prostate cancer DX BONE DENSITY Routine 06/15/2010 Osteopenia from Last 3 Months or Most Recently Relevant to Health Maintenance Results * (ABNORMAL) Basic metabolic panel (07/11/2023 8:02 AM GEOTHERMAL INSTALLER) Sodium 140 135 - 145 mmol/L 07/11/2023 8:46 AM [facility] Comment:Reference intervals for this test were updated on 02/08/2023 to more accurately reflect our healthy population. There may be differences in the flagging of prior results with similar values performed with this method. Interpretation of those prior results can be made in the context of the updated reference intervals. Potassium 3.8 3.4 - 5.3 mmol/L 07/11/2023 8:46 AM [facility] Chloride 104 98 - 107 mmol/L 07/11/2023 8:46 AM [facility] Carbon Dioxide (CO2) 29 22 - 29 mmol/L 07/11/2023 8:46 AM [facility] Anion Gap 7 7 - 15 mmol/L 07/11/2023 8:46 AM [facility] Urea Nitrogen 6.3(L) 8.0 - 23.0 mg/dL 07/11/2023 8:46 AM [facility] Creatinine 0.91 0.67 - 1.17 mg/dL 07/11/2023 8:46 AM [facility] GFR Estimate >90 >60 mL/min/1. 73m2 07/11/2023 8:46 AM [facility] Calcium 8.2(L) 8.8 - 10.2 mg/dL 07/11/2023 8:46 AM [facility] Glucose 109(H) 70 - 99 mg/dL 07/11/2023 8:46 AM [facility] Blood STRUCTURE OF RIGHT UPPER LIMB / Unknown Venipuncture / Unknown 07/11/2023 8:02 AM GEOTHERMAL INSTALLER 07/11/2023 8:22 AM GEOTHERMAL INSTALLER Xuan Paniagua MD LAB - BLOOD ORDERABL ES LABORATORY [facility] [address] Lab (1st floor, no room number) [place] [address], [facility] [phone] * COLONOSCOPY (07/06/2023 10:44 AM GEOTHERMAL INSTALLER) COLONOSCOPY [facility] Patient Name: Julio César Smith ?Procedure Date: 07/06/2023 10:44 AM ? Date of : 1960 ?Admit Type: Inpatient Age: 63 ? Gender: Male Attending MD: RISHABH CAMARILLO MD, ??Total Sedation Time: GETA. See anesthesia notes. 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 Providers: ?RISHABH CAMARILLO MD (Doctor) Referring MD: ? Medicines: ?General Anesthesia Complications: ?No immediate complications. Procedure: ?Pre-Anesthesia Assessment: ?- Prior to the procedure, a History and Physical ?was performed, and patient medications, allergies ?and sensitivities were reviewed. The patient's ?tolerance of previous anesthesia was reviewed. ?After obtaining informed consent, the colonoscope ?was passed under direct vision. Throughout the ?procedure, the patient's blood pressure, pulse, and ?oxygen saturations were monitored continuously. The ?Olympus, Pediatric Colonoscope, Model # [id number]-H190DL, ?Censitrac #[id number] was introduced through the ?and advanced to. ? Findings: ? The perianal and digital rectal examinations were normal. Pertinent ? negatives include no palpable rectal lesions. ? The terminal ileum appeared normal. ? There was evidence of a prior functional end-to-end ileo-colonic ? anastomosis in the ascending colon. This was patent and was ? characterized by moderate stenosis < 1cm long, initially diameter ws ? about 6mm. The anastomosis was traversed after dilation. A TTS dilator ? was passed through the scope. Dilation with an 11-12-13 mm colonic ? balloon dilator was performed. The dilation site was examined following ? endoscope reinsertion and showed improvement of luminal narrowing. ? Estimated blood loss was minimal. ? The exam was otherwise without abnormality. ? Impression: ? - The examined portion of the ileum was normal. ?- Patent functional end-to-end ileo-colonic ?anastomosis, characterized by moderate stenosis. ?Dilated. ?- The examination was otherwise normal. ?- No specimens collected. Recommendation: ? - Repeat colonoscopy in 1 year for surveillance. ? RISHABH CAMARILLO MD 07/12/2023 8:07:09 AM I was physically present for the entire viewing portion of the exam. RISHABH CAMARILLO MD Number of Addenda: 0 Note Initiated On: 07/06/2023 10:44 AM MRN: ?[id number] Procedure Date: ? 07/06/2023 10:44:38 AM Total Procedure Duration: 0 hours 32 minutes 29 seconds Estimated Blood Loss: ? Scope In: 10:42:57 AM Scope Out: 11:15:26 AM RADIOLOGY RESULTS 07/06/2023 10:4 4 AM GEOTHERMAL INSTALLER Rishabh Camarillo MD PROCEDURES RADIOLOGY RESULTS * Occult blood stool (05/11/2014 5:29 PM GEOTHERMAL INSTALLER) Occult Blood Negative [facility]G [facility] Stool specimen (specimen) STOOL SPECIMEN / Unknown 05/11/2014 5:29 PM GEOTHERMAL INSTALLER 05/11/2014 5:43 PM GEOTHERMAL INSTALLER Amarilis Baez MD LAB - STOOLS ORDERABLES [facility] * (ABNORMAL) Lipid Profile (01/11/2012 8:23 AM CDT) Cholesterol 145 0 - 200 mg/dL [facility] Comment: LDL Cholesterol is the primary guide to therapy. The NCEP recommends further evaluation of: patients with cholesterol greater than 200 mg/dL if additional risk factors are present, cholesterol greater than 240 mg/dL, triglycerides greater than 150 mg/dL, or HDL less than 40 mg/dL. Triglycerides 187(H) 0 - 150 mg/dL [facility] Comment:Fasting specimen HDL Cholesterol 31(L) 40 - 110 mg/dL [facility] LDL Cholesterol Calculated 77 0 - 129 mg/dL [facility] Comment: LDL Cholesterol is the primary guide to therapy: LDL-cholesterol goal in high risk patients is <100 mg/dL and in very high risk patients is <70 mg/dL. VLDL-Cholesterol 37(H) 0 - 30 mg/dL [facility] Cholesterol/HDL Ratio 4.7 0.0 - 5.0 [facility] Blood specimen (specimen) 01/11/2012 8:23 AM CDT 01/11/2012 11:31 AM CDT Reed Varghese MD LAB - BLOOD ORDERABL ES Performing Organization Address [facility] Co de Phone Number [facility] * Prostate spec antigen screen (05/31/2011 9:53 AM GEOTHERMAL INSTALLER) PSA 0.53 0 - 4 ug/L [facility] Blood specimen (specimen) 05/31/2011 9:53 AM GEOTHERMAL INSTALLER 05/31/2011 9:58 AM GEOTHERMAL INSTALLER Reed Varghese MD LAB - BLOOD ORDERABL ES Performing Organization Address City/[facility]/ZIP Co de Phone Number [facility] * Dexa hip/pelvis/spine* (06/15/2010) Anatomical Region Laterality Modality Dexa Other Impressions 06/15/2010 BONE DENSITOMETRY AND LATERAL VERTEBRAL ASSESSMENT [address] [address] 06/15/2010 Patient: ??Julio César Smith Chart: [id number] : ??1960 Age: ??50 year old Sex: ??male Referring provider: ??REED VARGHESE Procedure: ??Bone density scanning was performed using DEXA technology performed on a Hactus scanner. ?? Vertebral fracture assessment was performed in the lateral decubitus position. ??Reporting is completed in the form of a T-score. ?? The T-score represents the standard deviation from peak bone mass based on a young healthy adult. Options Advisor performing scan: ??Mari [facility] Reference T-Scores: ? Normal ?Greater than -1.0 ? Osteopenia ?-1.0 to -2.5 ? Osteoporosis ?Less than -2.5 NOF guidelines recommend treatment for patients with a T-score of -1.5 or less with risk factors or -2.0 or less without risk factors. Risk Factors: ??Height loss of 1 inch, terminal supervisor oral corticosteroid therapy Current Treatment: ??Calcium with Vitamin D, Fosamax DEXA Findings: ? Lumbar Spine (L1-L4): ??T-score -1.2 ? Left Femoral Neck: ??T-score -1.6 ? Right Femoral Neck: ??T-score -1.8 ? Comparison is made to bone densitometry performed on the same [employer] machine on 02/20 as well as 06/19. ??In the interim, there is the suggestion of no significant change. Indications for LVA: height loss of 1.0 or more and care home corticosteroid therapy ?? Confounding factors for LVA: None. ??LVA positioning is satisfactory. ??The LVA scan is interpretable from T7 to L4. LVA Findings: Using the semi-quantitative analysis of Elliott there was evidence of no spinal deformity LVA Impression: Julio César Smith has no vertebral fractures identified on the VFA. FINAL IMPRESSION Osteopenia (low bone mass) Dexa scan read and electronically signed by Reed A. Elert, M.D. Electronically filed by Pao Schneider ??07/03/2010 ??2:31 PM Reed Varghese MD IMG DEXA ORDERABLES from Last 3 Months or Most Recently Relevant to Health Maintenance Additional Health Concerns Active Problems Noted Date Diagnosed Date MyC ECC SURG ENROLL 05/26/2023 Care pathway for general surgery 06/07/2023 Advance Directives For more information, please contact: [phone] * Full Code (Latest Code Status on File) Date Activated Date Inactivated Comments 07/06/2023 4:20 PM 07/11/2023 5:50 PM All basic an d advanced life-sustaining interventions are performed as appropriate Question Answer Comments Code status determined by: Discussion with edson loza/ legal decision maker Care Teams Residential Care Facility Manager Relationship Specialty Start Date End Date Rishabh Tadeo PA-C [facility] [address] [place] [address] PCP - General Physician Civil Division Commander Deputy Sheriff 07/06/23
--- OUTSIDE RECORDS SUMMARY | 2024-02-10 13:21 | XMS_ITS | Encounter Summary ---
Author Organization [facility] Address [address] [place] [address] Care Team Providers Care Interior Plant Caretaker Name Role Phone Reed Olsen MD Primary Care Provider Carrie Vargas Primary Care Provider Laura Flor PA-C Primary Care Provider Encounter Details Date Type Department Care Team (Late st Contact Info) Description 01/20/[address] [address] Reed Olsen MD [address] [place] [phone] [facility] Discharge Summary (Primary Dx) Social History [...] Orientation Straight 08/10/2023 11 :16 AM CDT documented as of this encounter Plan of Treatment Not on file documented as of this encounter Visit Diagnoses Diagnosis [facility] Discharge Summary- Primary documented in this encounter Care Teams Interior Plant Caretaker Relationship Specialty Start Date End Date Reed Olsen MD [address] [place] [phone] PCP - General 02/28/03 04/25/14 Carrie Vargas [address] [place] [phone] PCP - General Family Practice 04/26/14 Laura Tadeo PA-C [facility] [address] [place] [address] PCP - General Physician Cable Inspector 07/06/23 documented as of this encounter
--- OUTSIDE RECORDS SUMMARY | 2024-02-10 13:21 | XMS_ITS | Clinical Summary ---
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 [...] Comments Family History Negative Brother 1 b 1955/b 1957/1958 Cancer Father lung cancer Genitourinary Problems Father benign gr owth removed from kidney Heart Disease Father stint Lipids Father Prostate Cancer Maternal Grandfather 65 Diabetes Mother 69 Lipids Mother Relation Status Comments Brother 1 Alive Brother 2 Alive Brother 3 Alive Father Alive Maternal Grandfather Mother Alive Sister (Age 3) genetic heart p roblem Social History Tobacco Use Types Packs/Day Years [...] Comments Blood Pressure 122/72 07/11/2023 7:30 AM VASCULAR NEUROLOGIST Pulse 94 07/11/2023 7:30 AM VASCULAR NEUROLOGIST Temperature 36.4 ??C (97.5 ??F) 07/11/2023 7:30 AM CS T Respiratory Rate 18 07/11/2023 7:30 AM VASCULAR NEUROLOGIST Oxygen Saturation 100% 07/11/2023 7:30 AM VASCULAR NEUROLOGIST Inhaled Oxygen Concentration - - Weight 77.8 kg (171 lb 9.6 oz) 07/10/2023 6:29 A M VASCULAR NEUROLOGIST Height 175.3 cm (5' 9) 07/04/2023 10:00 AM VASCULAR NEUROLOGIST Body Mass Index 25.34 07/04/2023 10:00 AM VASCULAR NEUROLOGIST Plan of Treatment Health Maintenance Due Date Last Done Comments ANNUAL REVIEW OF HM ORDERS 1960 CT COLONOGRAPHY 1960 FLEX SIG 1960 sDNA (Cologuard) 1960 HIV SCREENING 1975 HEPATITIS C SCREENING 1978 YEARLY PREVENTIVE VISIT 07/04/2004 07/04/2003 LIPID 07/13/2012 01/11/2012, 05/16, 04/17/2010, Additional history exists DEXA 06/15/2013 06/15/2010, 05/18, 03/08/2008, Additional history exists PSA 05/31/2014 05/31/2011 FIT 05/11/2015 05/11/2014 ADVANCE CARE PLANNING 12/05/2016 12/06/2011 RSV VACCINE (1 - Risk 60-74 years 1-dose series) 2020 DTAP/TDAP/TD IMMUNIZATION (2 - Td or Tdap) 06/13/2022 06/13/2012, 02/28/2003 PHQ-2 (once per calendar year) 2023 COVID-19 Vaccine ( season) 2024 02/17/2023, 04/19/2022, 08/15/2021, Additional history exists INFLUENZA VACCINE (#1) 2024 , 03/25/2022, 03/03/2021, Additional history exists GLUCOSE 07/11/2026 07/11/2023, 06/17, 07/07/2023, Additional history exists COLONOSCOPY 07/06/2028 07/06/2023, 06/17, 11/24/2022, Additional history exists COLORECTAL CANCER SCREENING 07/06/2028 Pneumococcal Vaccine: Pediatrics (0 to 5 Years) and At-Risk Patients (6 to 64 Years) Aged Out 12/15/2015, 02/21/2008, 09/10/1999 No longer eligible based on patient's age to complete this topic ZOSTER IMMUNIZATION Completed 11/22/2019, 9 HPV IMMUNIZATION Aged Out No longer e [...] BASIC METABOLIC PANEL Routine 07/11/2023 8:02 AM VASCULAR NEUROLOGIST COLONOSCOPY Routine 07/06/2023 10:44 AM VASCULAR NEUROLOGIST OCCULT BLOOD STOOL STAT 05/11/2014 5: 29 PM VASCULAR NEUROLOGIST Diarrhea LIPID PROFILE Routine 01/11/2012 8:23 AM CDT Dyslipidemia, LDL goal <160 PROSTATE SPECIFIC ANTIGEN SCREEN Routine 05/31/2011 9:53 AM VASCULAR NEUROLOGIST Screening for prostate cancer DX BONE DENSITY Routine 06/15/2010 Osteopenia from Last 3 Months or Most Recently Relevant to Health Maintenance Results * (ABNORMAL) Basic metabolic panel (07/11/2023 8:02 AM VASCULAR NEUROLOGIST) Sodium 140 135 - 145 mmol/L 07/11/2023 8:46 AM [facility] Comment:Reference intervals for this test were updated on 02/08/2023 to more accurately reflect our healthy population. There may be differences in the flagging of prior results with similar values performed with this method. Interpretation of those prior results can be made in the context of the updated reference intervals. Potassium 3.8 3.4 - 5.3 mmol/L 07/11/2023 8:46 AM [facility] Chloride 104 98 - 107 mmol/L 07/11/2023 8:46 AM [facility] Carbon Dioxide (CO2) 29 22 - 29 mmol/L 07/11/2023 8:46 AM [facility] Anion Gap 7 7 - 15 mmol/L 07/11/2023 8:46 AM [facility] Urea Nitrogen 6.3(L) 8.0 - 23.0 mg/dL 07/11/2023 8:46 AM [facility] Creatinine 0.91 0.67 - 1.17 mg/dL 07/11/2023 8:46 AM [facility] GFR Estimate >90 >60 mL/min/1. 73m2 07/11/2023 8:46 AM [facility] Calcium 8.2(L) 8.8 - 10.2 mg/dL 07/11/2023 8:46 AM [facility] Glucose 109(H) 70 - 99 mg/dL 07/11/2023 8:46 AM [facility] Blood STRUCTURE OF RIGHT UPPER LIMB / Unknown Venipuncture / Unknown 07/11/2023 8:02 AM VASCULAR NEUROLOGIST 07/11/2023 8:22 AM VASCULAR NEUROLOGIST Xuan Paniagua MD LAB - BLOOD ORDERABL ES [facility] [address] Lab (1st floor, no room number) [place] [address], [facility] [phone] * COLONOSCOPY (07/06/2023 10:44 AM VASCULAR NEUROLOGIST) [facility] Signature COLONOSCOPY [facility] Patient Name: Julio César Smith ?Procedure [...] ?Olympus, Pediatric Colonoscope, Model # [id number]-H190DL, ?Censitrac #[id number] was introduced through the ?and advanced to. [...] Note Initiated On: 07/06/2023 10:44 AM MRN: ?[id number] Procedure Date: ? 07/06/2023 10:44:38 AM Total Procedure Duration: 0 hours 32 minutes 29 seconds Estimated Blood Loss: ? Scope In: 10:42:57 AM Scope Out: 11:15:26 AM RADIOLOGY RESULTS 07/06/2023 10:4 4 AM VASCULAR NEUROLOGIST Rishabh Camarillo MD PROCEDURES RADIOLOGY RESULTS * Occult blood stool (05/11/2014 5:29 PM VASCULAR NEUROLOGIST) Occult Blood Negative NEG [facility] Stool specimen (specimen) STOOL SPECIMEN / Unknown 05/11/2014 5:29 PM VASCULAR NEUROLOGIST 05/11/2014 5:43 PM VASCULAR NEUROLOGIST Amarilis Baez MD LAB - STOOLS ORDERABLES Performing Organization Address [facility]/ZIP Co de Phone Number [facility] * (ABNORMAL) Lipid Profile (01/11/2012 8:23 AM CDT) Cholesterol 145 0 - 200 mg/dL [facility] Comment: LDL Cholesterol is the primary guide to therapy. The NCEP recommends further evaluation of: patients with cholesterol greater than 200 mg/dL if additional risk factors are present, cholesterol greater than 240 mg/dL, triglycerides greater than 150 mg/dL, or HDL less than 40 mg/dL. Triglycerides 187(H) 0 - 150 mg/dL [facility] Comment:Fasting specimen HDL Cholesterol 31(L) 40 - 110 mg/dL [facility] LDL Cholesterol Calculated 77 0 - 129 mg/dL [facility] Comment: LDL Cholesterol is the primary guide to therapy: LDL-cholesterol goal in high risk patients is <100 mg/dL and in very high risk patients is <70 mg/dL. VLDL-Cholesterol 37(H) 0 - 30 mg/dL [facility] Cholesterol/HDL Ratio 4.7 0.0 - 5.0 [facility] Blood specimen (specimen) 01/11/2012 8:23 AM CDT 01/11/2012 11:31 AM CDT Reed Varghese MD LAB - BLOOD ORDERABL ES [facility] * Prostate spec antigen screen (05/31/2011 9:53 AM VASCULAR NEUROLOGIST) PSA 0.53 0 - 4 ug/L [facility] Blood specimen (specimen) 05/31/2011 9:53 AM VASCULAR NEUROLOGIST 05/31/2011 9:58 AM VASCULAR NEUROLOGIST Reed Varghese MD LAB - BLOOD ORDERABL ES Performing Organization Address [facility]/State/ZIP Co de Phone Number [facility] * Dexa hip/pelvis/spine* (06/15/2010) Anatomical Region Laterality Modality Dexa Other Impressions 06/15/2010 BONE DENSITOMETRY AND LATERAL VERTEBRAL ASSESSMENT [facility] [address] [address] 06/15/2010 Patient: ??Julio César Smith Chart: [id number] : ??1960 Age: ??50 year old Sex: ??male Referring provider: ??REED VARGHESE Procedure: ??Bone density scanning was performed using DEXA technology performed on a Night Up scanner. ?? Vertebral fracture assessment was performed in the lateral decubitus position. ??Reporting is completed in the form of a T-score. ?? The T-score represents the standard deviation from peak bone mass based on a young healthy adult. Security Incident Response Engineer performing scan: ??Mari Murillo Reference T-Scores: ? Normal ?Greater than -1.0 ? Osteopenia ?-1.0 to -2.5 ? Osteoporosis ?Less than -2.5 NOF guidelines recommend treatment for patients with a T-score of -1.5 or less with risk factors or -2.0 or less without risk factors. Risk Factors: ??Height loss of 1 inch, senior living oral corticosteroid therapy Current Treatment: ??Calcium with Vitamin D, Fosamax DEXA Findings: ? Lumbar Spine (L1-L4): ??T-score -1.2 ? Left Femoral Neck: ??T-score -1.6 ? Right Femoral Neck: ??T-score -1.8 ? Comparison is made to bone densitometry performed on the same [email or web address] machine on 02/20 as well as 06/19. ??In the interim, there is the suggestion of no significant change. Indications for LVA: height loss of 1.0 or more and usp corticosteroid therapy ?? Confounding factors for LVA: None. ??LVA positioning is satisfactory. ??The LVA scan is interpretable from T7 to L4. LVA Findings: Using the semi-quantitative analysis of Genmaritza there was evidence of no spinal deformity LVA Impression: Julio César Smith has no vertebral fractures identified on the VFA. FINAL IMPRESSION Osteopenia (low bone mass) Dexa scan read and electronically signed by Reed Varghese M.D. Electronically filed by Pao Schneider ??07/03/2010 ??2:31 PM Reed Varghese MD IMG DEXA ORDERABLES from Last 3 Months or Most Recently Relevant to Health Maintenance Additional Health Concerns Active Problems Noted Date Diagnosed Date MyC ECC SURG ENROLL 05/26/2023 Care pathway for general surgery 06/07/2023 Advance Directives For more information, please contact: [phone] * Full Code (Latest Code Status on File) Date Activated Date Inactivated Comments 07/06/2023 4:20 PM 07/11/2023 5:50 PM All basic an d advanced life-sustaining interventions are performed as appropriate Question Answer Comments Code status determined by: Discussion with edson loza/ legal decision maker Care Teams Sugar Presser Relationship Specialty Start Date End Date Rishabh Tadeo PA-C [facility] [address] [place] [address] PCP - General Physician Marina Porter 07/06/23
--- OUTSIDE RECORDS SUMMARY | 2024-02-10 13:21 | XMS_ITS | Encounter Summary ---
Author Organization [facility] Address [address] [place] [address] Care Team Providers Care Cumulative Effects Analyst Name Role Phone Reed Olsen MD Primary Care Provider Carrie Vargas [facility] Primary Care Provider Encounter Details Date Type Department Care Team (Late st Contact Info) Description 11/21/2013 MyC Medical Advice [address] [address] Cheyenne Beckman MA Social History Tobacco Use [...] on filedocumented in this encounter Care Teams Cumulative Effects Analyst Relationship Specialty Start Date End Date Reed Olsen MD [address] [place] [phone] PCP - General 02/28/03 04/25/14 Carrie Vargas [address] [address] PCP - General Family Practice 04/26/14 Laura Tadeo PA-C [facility] [address] [place] [address] PCP - General Physician Wood Milling Machine Operator 07/06/23 documented as of this encounter
--- OUTSIDE RECORDS SUMMARY | 2024-02-10 13:21 | XMS_ITS | Clinical Summary ---
Author Organization [facility] [place] [address] Care Team Providers Care Cupola Operator Insulation Name Role Phone Laura Tadeo PA-C Primary [...] Take 20 mg by mouth once daily. Active cyanocobalamin (VITAMIN B12) injection Inject 1,000 mcg intramuscular. Q30D Active alendronate (FOSAMAX) 70 mg tablet Take 70 mg by mouth once weekly. Take on empty stomach with full glass of water. Do not lie down for 1 hr. Active clindamycin 1% (CLEOCIN-T) 1 % lotion Apply topically to affected area(s) 2 times daily. Active clobetasol cream 0.05% (TEMOVATE) 0.05 % cream Apply topically to affected area(s) 2 times daily. Active hydrocortisone 2.5% cream Apply topically to affected area(s) 2 times daily. Active cholecalciferol, Vitamin D3, 2,000 unit tablet Take 4,000 units by mouth 2 times daily. Active cetirizine (ZYRTEC) 10 mg tablet Take 10 mg by mouth once daily. Active cholestyramine-aspa rtame (Cholestyramine Light) 4 gram powder Mix 4 g in liquid then take by mouth 2 times daily. Active calcium carbonate (OS-MELONIE 500) 500 mg calcium (1,250 mg) tablet Take 1,000 mg by mouth 2 times daily with meals. Active adalimumab (HUMIRA) 40 mg/0.8 mL injection Inject 40 mg subcutaneous once weekly. Active acetaminophen (TYLENOL EXTRA STRGTH) 500 mg tablet Take 1,000 mg by mouth. Max acetaminophen dose: 4000mg in 24 hrs. Active omega-3 fatty acids (FISH OIL) cap Take 1,000 mg by mouth 2 times daily. Active multivit-mins no.63/iron/folic (M-VIT ORAL) Take by mouth once daily. Active lecithin 1,200 mg cap Take 1,200 mg by mouth once daily. Active loperamide (IMODIUM) 2 mg capsule Take 6 mg by mouth once daily. Take 4mg by mouth with 1st loose stool, then 2mg with each subsequent loose stool. Max 16 mg in 24 hrs Active FERROUS SULFATE ORAL Take 47.5 mg by mouth once daily. Active vitamin B complex (B COMPLEX 1 ORAL) Take by mouth once daily. Active loratadine 10 mg cap Take by mouth once daily. Active allopurinoL (ZYLOPRIM) 100 mg tablet 10/13/2021 Active calcium with vitamin D3 (OS-MELONIE 500 + D) tablet Take by mouth. Activ e Active Problems No known active problems Encounters Date Type Department Care Team Description 02/03/2024 Transcribe Orders [facility] [address] [place] [address] Mannie Staples MD 02/03/2024 Transcribe Orders [facility] [address] [place] [address] Mannie Staples MD from Last 3 Months Social History Tobacco Use Types Packs/Day Years [...] 10/21/2021 9:50 AM CDT Plan of Treatment Upcoming Encounters Date Type Department Care Team (Late st Contact Info) Description 02/20/2024 9:30 AM CDT Appointment [address] [address] Health Maintenance Due Date Last Done Comments [...] (1 of 2) 2010 COVID-19 vaccine series ( season) 2024 08/15/2021, 03/28/2021, 08/23/2020, Additional history exists Influenza for age 50-64 01/15/2024 Pneumococcal series for age 6-64 Aged Out No longer eligible based on patient's age to complete this topic Medical Devices Implanted Type Area Clother In Device Identifier Shelf Expiration Date Model / Serial / Lot Implnt Rte Snapcone C./Lgx1.0cm - [id number] Implanted:Qty: 1 on 08/11/2021 by Alvaro Lay MD at [facility] N/A: Penis [employer] 10/07/2022 [id number] / / [id number] Implnt Sylvester 100ml Conccile Iz - [id number] Implanted:Qty: 1 on 08/11/2021 by Alvaro Lay MD at [facility] N/A: Elieser [employer] 07/01/2023 [id number] / / [id number] Advance Directives * Full Code (Latest Code Status on File) Date Activated Date Inactivated Comments 08/11/2021 6:08 AM 08/11/2021 6:25 PM Question Answer Comments Code Status Discussion: Unable to Assess Preferences, Provider to review later Care Teams Cupola Operator Insulation Relationship Specialty Start Date End Date Laura Tadeo PA-C [address] [place] [address] PCP - General Emergency Medicine 07/22/21
--- OUTSIDE RECORDS SUMMARY | 2024-02-10 13:21 | XMS_ITS | Encounter Summary ---
Author Organization [facility] Address [address] [place] [address] Care Team Providers Care Puller Machine Name Role Phone Carrie Vargas Primary Care Provider Laura Flor PA-C Primary Care Provider Encounter Details Date Type Department Care Team (Late st Contact Info) Description 07/02/2023 MyC Medical Advice Initial Department Oswald Ogden Social History Tobacco Use Types Packs/Day Years [...] on file documented as of this encounter Goals Goal Patient Goal Type Associated Problems Recent Progress Patient-Stated? Author MYC ECC SURG ENROLL Care Plan MyC ECC SURG ENROLL No Naomy Vargas Care pathway for general surgery Care Plan Care pathway for general surgery No Oswald Ogden MYC ECC SURG DAY 10 MED Care Plan Care pathway for general surgery No Oswald Og[place] documented as of this encounter Visit Diagnoses Not on filedocumented in this encounter Additional Health Concerns Active Problems Noted Date Diagnosed Date MyC ECC SURG ENROLL 05/26/2023 Care pathway for general surgery 06/07/2023 documented as of this encounter Care Teams Puller Machine Relationship Specialty Start Date End Date Carrie Vargas PCP - General Family Practice 04/26/14 07/05/23 Laura Tadeo PA-C [facility] [address], [place] [address] PCP - General Physician Shuttle Hand 07/06/23 documented as of this encounter
--- OUTSIDE RECORDS SUMMARY | 2024-02-10 13:21 | XMS_ITS | Encounter Summary ---
Author Organization [facility] Address [address] [place] [address] Care Team Providers Care Repairer Pump Name Role Phone Reed Olsen MD Primary Care Provider [phone] Carrie Vargas Primary Care Provider Laura Flor PA-C Primary Care Provider Encounter Details Date Type Department Care Team (Late st Contact Info) Description 05/24/2011 [facility] [address] [address] [facility] Social History Tobacco Use Types Packs/Day Years [...] on filedocumented in this encounter Care Teams Repairer Pump Relationship Specialty Start Date End Date Reed Olsen MD [address] [place] [phone] PCP - General 02/28/03 04/25/14 Carrie Vargas [address], [place] [address] PCP - General Family Practice 04/26/14 Laura Tadeo PA-C [facility] [address] [place] [address] PCP - General Physician Curve Cleaner 07/06/23 documented as of this encounter
== END 2024-02-09 15:09 | disposition home or self-care (01) ==
LOC: NFLDREF 02-10 13:19
PROVIDERS: PCP Physician Assistant Medical; Referring Provider Physician Assistant Medical; Visit Provider Physician Assistant Medical
DX: E55.9 Vitamin D deficiency, unspecified (principal)
CPT/HCPCS: 80048

== ENCOUNTER 2024-05-01 08:39 | Outpatient (CLI) | payer OTHER, SELFPAY | END 2024-05-01 08:40 | disposition home or self-care (01) | LOC: NFLDREF 05-02 05:31 | PROVIDERS: PCP Physician Assistant Medical; Referring Provider Physician Assistant Medical; Visit Provider Physician Assistant Medical | DX: E78.1 Pure hyperglyceridemia (principal); D50.9 Iron deficiency anemia, unspecified; E87.5 Hyperkalemia; E53.8 Deficiency of other specified B group vitamins; E55.9 Vitamin D deficiency, unspecified; Z13.29 Encounter for screening for other suspected endocrine disorder; Z12.5 Encounter for screening for malignant neoplasm of prostate | CPT/HCPCS: 80053; 80061; 82306; 82607; 84443; G0103 ==